=== PATIENT | female | born 1950 | race Caucasian/White ===

== ENCOUNTER 2017-08-27 17:25 | Inpatient (IN) | payer MEDICARE ==
--- NOTE | 2017-08-27 17:44 | ER Document Report ---
ED Medical Screen (RME) - General Chief Complaint: Shortness Of Breath Stated Complaint: SHORTNESS OF BREATH Time Seen by Provider: 08/27/17 17:39 Notes: Patient states that she has no local doctor in the area. She states she has had upper respiratory symptoms for several days but today became severely short of breath. She denies any hx of heart or lung disease TRAVEL OUTSIDE OF THE [place] IN LAST 30 DAYS: No - Related Data Allergies/Adverse Reactions: No Known Allergies Allergy (Unverified 08/27/17 17:30) Past Medical History - Social History Frequency of alcohol use: None Drug Abuse: None - Past Medical History Cardiac Medical History: Reports: Hx Hypertension Renal/ Medical History: Denies: Hx Peritoneal Dialysis Past Surgical History: Reports: Hx Genitourinary Surgery - bladder surgery Physical Exam - Vital signs Vitals: Temp Pulse Resp BP Pulse Ox 99.4 F 102 H 20 166/104 H 94 08/27/17 17:35 08/27/17 17:35 08/27/17 17:35 08/27/17 17:35 08/27/17 17:35 Course - Vital Signs Vital signs: Temp Pulse Resp BP Pulse Ox 99.4 F 102 H 20 166/104 H 94 08/27/17 17:35 08/27/17 17:35 08/27/17 17:35 08/27/17 17:35 08/27/17 17:35
[2017-08-27 18:35] LABS: ABSOLUTE BASOPHILS # (AUTO) 0.1 10^3/uL (0.0-0.2); ABSOLUTE EOSINOPHILS # (AUTO) 0.1 10^3/uL (0.0-0.6); ABSOLUTE NEUT (AUTO) 7.7 10^3/uL (1.7-8.2); EOSINOPHILS % (AUTO) 0.8 % (0-6); HEMATOCRIT 39.4 % (36.0-47.0); HEMOGLOBIN 13.4 g/dL (12.0-15.5); LYMPHOCYTES % (AUTO) 9.9 % (13-45); MEAN CORPUSCULAR HEMOGLOBIN 29.6 pg (27.0-33.4); MEAN CORPUSCULAR HGB CONC 33.9 g/dL (32.0-36.0); MEAN CORPUSCULAR VOLUME 87 fl (80-97); MONOCYTES % (AUTO) 9.9 % (3-13); PLATELET COUNT 364 10^3/uL (150-450); RED BLOOD COUNT 4.52 10^6/uL (3.72-5.28); RED CELL DISTRIBUTION WIDTH 19.6 % (11.5-14.0); SEGMENTED NEUTROPHILS % (AUTO) 78.4 % (42-78); TOTAL CELLS COUNTED % (AUTO) 100 %; WHITE BLOOD COUNT 9.8 10^3/uL (4.0-10.5)
[2017-08-27 18:40] LABS: VENOUS BLOOD BASE EXCESS 2.4 mmol/L; VENOUS BLOOD HCO3 26.7 mmol/L (20-32); VENOUS BLOOD PCO2 40.1 mmHg (35-63); VENOUS BLOOD PH 7.44 (7.30-7.42)
[2017-08-27 18:55] LABS: ALANINE AMINOTRANSFERASE 30 U/L (9-52); ALBUMIN 4.4 g/dL (3.5-5.0); ALKALINE PHOSPHATASE 206 U/L (38-126); ANION GAP 13 (5-19); ASPARTATE AMINO TRANSFERASE 34 U/L (14-36); BILIRUBIN,DIRECT 1.1 mg/dL (0.0-0.4); BILIRUBIN,TOTAL 1.8 mg/dL (0.2-1.3); BLOOD UREA NITROGEN 14 mg/dL (7-20); CALCIUM 10.2 mg/dL (8.4-10.2); CARBON DIOXIDE 25 mmol/L (22-30); CHLORIDE 104 mmol/L (98-107); GLUCOSE 144 mg/dL (75-110); POTASSIUM 4.4 mmol/L (3.6-5.0); SODIUM 141.9 mmol/L (137-145); TOTAL PROTEIN 8.6 g/dL (6.3-8.2)
--- NOTE | 2017-08-27 19:27 | ER Document Report ---
ED Respiratory Problem - General Chief Complaint: Shortness Of Breath Stated Complaint: SHORTNESS OF BREATH Time Seen by Provider: 08/27/17 17:39 Notes: Patient is a 66-year-old female that comes emergency department for chief complaint of difficulty breathing. She states that over the past few days she has had increased difficulty breathing, she states she thinks she had a fever the other day as well, no significant coughing. She states today she cannot walk a few steps without gasping for air. She denies any specific chest pain. She denies nausea vomiting, lightheadedness. She takes lisinopril 10 mg daily, she denies ever smoking, she denies any recreational drugs, she denies any surgery, she denies any medical history other than hypertension. Her primary providers in [place], she has been visiting to help with family here since last fall. TRAVEL OUTSIDE OF THE [place] IN LAST 30 DAYS: No - Related Data Allergies/Adverse Reactions: No Known Allergies Allergy (Unverified 08/27/17 17:30) Past Medical History - General Information source: Patient - Social History Smoking Status: Never Smoker Frequency of alcohol use: None Drug Abuse: None Lives with: Family Family History: Reviewed & Not Pertinent Patient has suicidal ideation: No Patient has homicidal ideation: No - Past Medical History Cardiac Medical History: Reports: Hx Hypertension Renal/ Medical History: Denies: Hx Peritoneal Dialysis Past Surgical History: Reports: Hx Genitourinary Surgery - bladder surgery - Immunizations Immunizations up to date: Yes Hx Diphtheria, Pertussis, Tetanus Vaccination: Yes Review of Systems - Review of Systems Constitutional: See HPI EENT: No symptoms reported Cardiovascular: See HPI Respiratory: See HPI Gastrointestinal: No symptoms reported Genitourinary: No symptoms reported Female Genitourinary: No symptoms reported Musculoskeletal: No symptoms reported Skin: No symptoms reported Hematologic/Lymphatic: No symptoms reported Neurological/Psychological: No symptoms reported Physical Exam - Vital signs Vitals: Temp Pulse Resp BP Pulse Ox 99.4 F 102 H 20 166/104 H 94 08/27/17 17:35 08/27/17 17:35 08/27/17 17:35 08/27/17 17:35 08/27/17 17:35 Interpretation: Normal - General General appearance: Alert In distress: Mild - patient with mild tachypnea - HEENT Head: Normocephalic, Atraumatic Eyes: Normal Conjunctiva: Normal Extraocular movements intact: Yes Eyelashes: Normal Pupils: PERRL Nasal: Normal Mouth/Lips: Normal Mucous membranes: Normal Pharynx: Normal Neck: Normal - Respiratory Respiratory status: No respiratory distress, Tachypnea - Very mild tachypnea off oxygen, no tachypnea with oxygen, Other - Patient has difficulty speaking in complete sentences without taking extra breaths. No: Respiratory distress Chest status: Nontender Breath sounds: Decreased air movement - decreased right greater than left, Rales - Rales heard mostly in the left mid to lower base. No: Nonproductive cough, Wheezing Chest palpation: Normal - Cardiovascular Rhythm: Regular, Tachycardia Heart sounds: Normal auscultation, S1 appreciated, S2 appreciated Murmur: No - Abdominal Inspection: Normal Distension: No distension Bowel sounds: Normal Tenderness: Nontender. No: Tender, Guarding - Back Back: Normal, Nontender. No: Tender, CVA tenderness - Extremities General upper extremity: Normal inspection, Nontender, Normal strength, Normal temperature General lower extremity: Normal inspection, Nontender, Normal strength, Normal temperature. No: Edema - Neurological Neuro grossly intact: Yes Cognition: Normal Orientation: AAOx4 Briana Coma Scale Eye Opening: Spontaneous Briana Coma Scale Verbal: Oriented Ney Coma Scale Motor: Obeys Commands Briana Coma Scale Total: 15 Speech: Normal Motor strength normal: LUE, RUE, LLE, RLE Sensory: Normal - Psychological Associated symptoms: Normal affect, Normal mood - Skin Skin Temperature: Warm Skin Moisture: Dry Skin Color: Normal Course - Re-evaluation Re-evalutation: Patient is not tachycardic, oxygen on room air is borderline and occasionally dips down to low 90s while sitting. However she can barely speak a few words without having obvious dyspnea, she has rales on examination of her lungs, worse in the left base with decreased breath sounds in the right lung, but no overt edema of the lower extremities. No previous diagnosis of congestive heart failure. EKG showing sinus tachycardia at a rate of 104, Q waves in leads III and aVF, left ventricular hypertrophy. No T-wave inversions or ST segment changes in consecutive leads. CBC unremarkable, chemistry generally unremarkable with nonspecific elevation of bilirubin. BNP is elevated at 5800 with no comparison. Blood gas is nonspecific. Urinalysis showing urinary tract infection with positive nitrates , white blood cells, leukocyte esterase. Culture placed, given Rocephin. Chest x-ray showing right-sided effusion, with rales on exam, elevated BNP, left ventricular hypertrophy on EKG I suspect effusion is secondary to failure. She is hypertensive. Given Lasix, nitroglycerin. She denies weight loss, smoking history, personal history of cancer. Bilirubin is only mildly elevated , no LFT elevation. Discussed with Dr. Grissom. Discussed with Dr. White, internal medicine, patient will be admitted to telemetry full admission. Patient states agreement with plan. - Vital Signs Vital signs: Temp Pulse Resp BP Pulse Ox 99.4 F 102 H 20 166/104 H 94 08/27/17 17:35 08/27/17 17:35 08/27/17 17:35 08/27/17 17:35 08/27/17 17:35 - Laboratory Result Diagrams: 08/27/17 18:15 08/27/17 18:15 Laboratory results interpreted by me: 08/27/17 08/27/17 08/27/17 18:15 18:15 18:15 RDW 19.6 H Seg Neutrophils % 78.4 H Lymphocytes % 9.9 L VBG pH Creatinine 0.49 L Glucose 144 H Total Bilirubin 1.8 H Direct Bilirubin 1.1 H Alkaline Phosphatase 206 H NT-Pro-B Natriuret Pep 5800 H Total Protein 8.6 H Urine Protein Urine Ketones Urine Blood Urine Nitrite Urine Urobilinogen Ur Leukocyte Esterase Urine Ascorbic Acid 08/27/17 08/27/17 18:15 18:34 RDW Seg Neutrophils % Lymphocytes % VBG pH 7.44 H Creatinine Glucose Total Bilirubin Direct Bilirubin Alkaline Phosphatase NT-Pro-B Natriuret Pep Total Protein Urine Protein 100 H Urine Ketones 20 H Urine Blood SMALL H Urine Nitrite POSITIVE H Urine Urobilinogen 4.0 H Ur Leukocyte Esterase SMALL H Urine Ascorbic Acid 40 H Discharge - Discharge Clinical Impression: Dyspnea on exertion, Pleural effusion Congestive heart failure (CHF) Qualifiers: Heart failure type: unspecified Heart failure chronicity: acute Qualified Code( s): I50.9 - Heart failure, unspecified Urinary tract infection Qualifiers: Urinary tract infection type: site unspecified Hematuria presence: without hematuria Qualified Code(s): N39.0 - Urinary tract infection, site not specified Condition: Stable Disposition: ADMITTED INPATIENT Admitting Provider: Hospitalist Unit Admitted: Telemetry
--- NOTE | 2017-08-27 19:40 | RADIOLOGY REPORT (SQ) ---
EXAM DESCRIPTION: CHEST SINGLE VIEW COMPLETED DATE/TIME: 08/27/2017 7:32 pm REASON FOR STUDY: shortness of breath COMPARISON: None. EXAM PARAMETERS: NUMBER OF VIEWS: One view. TECHNIQUE: Single frontal radiographic view of the chest acquired. RADIATION DOSE: NA LIMITATIONS: None. FINDINGS: LUNGS AND PLEURA: Large amount of consolidation -effusion in the right lung base. Left cam ng appears clear. MEDIASTINUM AND HILAR STRUCTURES: Age-appropriate in its visualized portions. HEART AND VASCULAR STRUCTURES: Mild cardiac enlargement. BONES: No acute findings. HARDWARE: None in the chest. OTHER: No other significant finding. IMPRESSION: Large amount of consolidation -effusion in the right lung base. TECHNICAL DOCUMENTATION: JOB ID: [id number] [place]-72 2010 [employer]- All Rights Reserved
[2017-08-27 19:53] LABS: AMORPHOUS SEDIMENT,URINE TRACE /HPF; APPEARANCE,URINE TURBID; BILIRUBIN,URINE NEGATIVE (NEGATIVE); COLOR,URINE YELLOW; GLUCOSE, URINE NEGATIVE (NEGATIVE); KETONES,URINE 20 mg/dL (NEGATIVE); LEUKOCYTE ESTERASE,URINE SMALL (NEGATIVE); NITRITE,URINE POSITIVE (NEGATIVE); PROTEIN,URINE 100 mg/dL (NEGATIVE); URINE SPECIFIC GRAVITY 1.029
[2017-08-27] MEDS ORDERED: CEFTRIAXONE 1 GM/D5W RTU 1 GM/50 ML RTUPB IV ONE (20:10)
[2017-08-27 20:41] LABS: CREATINE KINASE MB 1.27 ng/mL (<4.55)
[2017-08-27 21:05] LABS: TROPONIN I 0.03 ng/mL
[2017-08-27] MEDS ORDERED: FUROSEMIDE INJ/PF 40 MG/4 ML SDV IV ONE (21:13)
[2017-08-27] MEDS ORDERED: NITROGLYCERIN 2% OINTMENT 1 GM PACKET TP ONE (21:13)
[2017-08-27] MEDS ORDERED: CEFTRIAXONE INJ 1000 MG VIAL ONE (21:54)
[2017-08-27] MEDS ORDERED: ACETAMINOPHEN 325 MG TABLET PO PRN (22:18)
--- NOTE | 2017-08-27 23:29 | RADIOLOGY REPORT (SQ) ---
EXAM DESCRIPTION: CHEST SINGLE VIEW CLINICAL HISTORY: 66 years, Female, lateral decubitus - eval effusion COMPARISON: None. NUMBER OF VIEWS: 1 TECHNIQUE: Right lateral decubitus LIMITATIONS: None. FINDINGS: A right lateral decubitus view to supplement an earlier upright view shows a moderate right lower lobar opacity and a moderate layering fluid component. Mild cardiac enlargement. IMPRESSION: As above.
[2017-08-27 23:33] LABS: CREATINE KINASE MB 1.29 ng/mL (<4.55)
[2017-08-27 23:43] LABS: TROPONIN I 0.039 ng/mL
[2017-08-28] MEDS ORDERED: LORAZEPAM INJ 2 MG/1 ML VIAL ONE (00:30)
[2017-08-28] MEDS ORDERED: KETOROLAC TROMETHAMINE INJ/PF 30 MG/1 ML SDV IV PRN (01:05)
[2017-08-28] MEDS ORDERED: HYDRALAZINE HCL INJ/PF 20 MG/1 ML SDV IV PRN (01:05)
--- NOTE | 2017-08-28 01:11 | RADIOLOGY REPORT (SQ) ---
EXAM DESCRIPTION: CT ABD/PELVIS NO ORAL OR IV (accession [id number]), CT CHEST WITHOUT (accession [id number]) CLINICAL HISTORY: 66 years Female, pyelo COMPARISON: CR, 08/27/2017. TECHNIQUE: No contrast. Coronal and sagittal reformat. This exam was performed according to our departmental dose-optimization program, which includes automated exposure control, adjustment of the mA and/or kV according to patient size and/or use of iterative reconstruction technique. Limitation: Respiration artifact. FINDINGS: Moderate-large right pleural effusion, moderate right basilar consolidate. Moderate coronary arterial calcification. Mild cardiac enlargement, cholecystectomy clips, moderate pancreatic atrophy, atherosclerosis, and scattered vacuum desiccated discs. Moderate exaggerated kyphosis of the thoracic spine. Unenhanced inferior neck, axillae, mediastinum, htcdb-ubidrxakj-mvirqi structures, and musculoskeleton appear otherwise unremarkable. No ascites. IMPRESSION: 1. Moderate right lower lobar pneumonia. Moderate-large right pleural effusion. 2. No acute intra-abdominal/pelvic findings.
--- NOTE | 2017-08-28 01:11 | RADIOLOGY REPORT (SQ) ---
EXAM DESCRIPTION: CT ABD/PELVIS NO ORAL OR IV (accession [id number]), CT CHEST WITHOUT (accession [id number]) CLINICAL HISTORY: 66 years Female, pyelo COMPARISON: CR, 08/27/2017. TECHNIQUE: No contrast. Coronal and sagittal reformat. This exam was performed according to our departmental dose-optimization program, which includes automated exposure control, adjustment of the mA and/or kV according to patient size and/or use of iterative reconstruction technique. Limitation: Respiration artifact. FINDINGS: Moderate-large right pleural effusion, moderate right basilar consolidate. Moderate coronary arterial calcification. Mild cardiac enlargement, cholecystectomy clips, moderate pancreatic atrophy, atherosclerosis, and scattered vacuum desiccated discs. Moderate exaggerated kyphosis of the thoracic spine. Unenhanced inferior neck, axillae, mediastinum, insux-zsuokdmdp-uycyte structures, and musculoskeleton appear otherwise unremarkable. No ascites. IMPRESSION: 1. Moderate right lower lobar pneumonia. Moderate-large right pleural effusion. 2. No acute intra-abdominal/pelvic findings.
[2017-08-28] MEDS: IPRATROPIUM/ALBUTEROL 0.5-2.5 MG/3 ML AMPUL NEB SCH ×4 (01:48→20:20)
--- NOTE | 2017-08-28 04:18 | PDOC H&P ---
History of Present Illness Admission Date/PCP: 08/27/17 22:36 Patient complains of: Shortness of breath History of Present Illness: JUAN PABLO DIANE is a 66 year old female with a past medical history of hypertension. Presenting after several weeks of progressive leg edema, orthopnea and exertional shortness of breath. Additionally she has had several days of rhinorrhea, subjective fever and nonproductive cough. In the emergency room she is found to be hypertensive with systolic pressure in the 180s, tachypnea and a CT of the chest with a large right-sided pleural effusion and infiltrate. She started on empiric antibiotics and referred to the hospitalist for admission. Patient denies previous pneumonia, infectious contacts or recent antibiotic use. Past Medical History Cardiac Medical History: Reports: Hypertension EENT Medical History: Reports: None Neurological Medical History: Reports: None Endocrine Medical History: Reports: None Malignancy Medical History: Reports: None GI Medical History: Reports: None Musculoskeltal Medical History: Reports: None Skin Medical History: Reports: None Psychiatric Medical History: Reports: None Traumatic Medical History: Reports: None Hematology: Reports: None Infectious Medical History: Reports: None Past Surgical History Past Surgical History: Reports: None Social History Information Source: Patient Lives with: Family Smoking Status: Never Smoker Frequency of Alcohol Use: None Drugs: None - Advance Directive Resuscitation Status: Full Code Family History Family History: COPD Parental Family History Reviewed: Yes Children Family History Reviewed: Yes Sibling(s) Family History Reviewed.: Yes Medication/Allergy Home Medications: Lisinopril [Prinivil 10 mg Tablet] 10 mg PO QPM 08/27/17 Allergies/Adverse Reactions: No Known Allergies Allergy (Unverified 08/27/17 17:30) Review of Systems Constitutional: PRESENT: as per HPI, chills, fatigue, fever(s), weakness, weight gain. ABSENT: anorexia, night sweats Eyes: ABSENT: visual disturbances Ears: ABSENT: hearing changes Cardiovascular: PRESENT: as per HPI, dyspnea on exertion, edema, orthropnea. ABSENT: palpitations Respiratory: PRESENT: as per HPI, cough, dyspnea. ABSENT: hemoptysis, sputum Gastrointestinal: ABSENT: abdominal pain, constipation, diarrhea, hematemesis, hematochezia, nausea, vomiting Genitourinary: ABSENT: dysuria, hematuria Musculoskeletal: ABSENT: joint swelling Integumentary: ABSENT: rash, wounds Neurological: ABSENT: abnormal gait, abnormal speech, confusion, dizziness, focal weakness, syncope Psychiatric: ABSENT: anxiety, depression, homidical ideation, suicidal ideation Endocrine: ABSENT: cold intolerance, heat intolerance, polydipsia, polyuria Hematologic/Lymphatic: ABSENT: easy bleeding, easy bruising Physical Exam Vital Signs: Temp Pulse Resp BP Pulse Ox 98.9 F 88 31 H 156/87 H 96 08/28/17 01:09 08/28/17 01:50 08/28/17 03:17 08/28/17 03:17 08/28/17 03:17 General appearance: PRESENT: cooperative, mild distress, obese Head exam: PRESENT: atraumatic, normocephalic Eye exam: PRESENT: conjunctiva pink, EOMI, PERRLA. ABSENT: scleral icterus Ear exam: PRESENT: normal external ear exam Mouth exam: PRESENT: moist, tongue midline Neck exam: PRESENT: full ROM, JVD. ABSENT: meningismus, tenderness, thyromegaly Respiratory exam: PRESENT: accessory muscle use, crackles, decreased breath sounds, prolonged expiratory phas, rales, retraction, rhonchi, tachypnea Cardiovascular exam: PRESENT: gallop, RRR, +S1, +S2, systolic murmur, tachycardia Pulses: PRESENT: normal dorsalis pedis pul Vascular exam: PRESENT: normal capillary refill GI/Abdominal exam: PRESENT: normal bowel sounds, soft. ABSENT: distended, guarding, mass, organolmegaly, rebound, tenderness Rectal exam: PRESENT: deferred Extremities exam: PRESENT: full ROM, +1 edema. ABSENT: calf tenderness, clubbing, pedal edema Neurological exam: PRESENT: alert, awake, oriented to person, oriented to place , oriented to time, oriented to situation, CN II-XII grossly intact. ABSENT: motor sensory deficit Psychiatric exam: PRESENT: appropriate affect, normal mood. ABSENT: homicidal ideation, suicidal ideation Skin exam: PRESENT: dry, intact, warm. ABSENT: cyanosis, rash Results Laboratory Results: 08/27/17 08/27/17 22:45 22:45 Creatine Kinase 46 CK-MB (CK-2) 1.29 Troponin I 0.039 Impressions: Chest X-Ray 08/27/17 22:15 IMPRESSION: As above. Abdomen/Pelvis CT 08/28/17 00:00 IMPRESSION: 1. Moderate right lower lobar pneumonia. Moderate-large right pleural effusion. 2. No acute intra-abdominal/pelvic findings. Chest CT 08/28/17 00:00 IMPRESSION: 1. Moderate right lower lobar pneumonia. Moderate-large right pleural effusion. 2. No acute intra-abdominal/pelvic findings. Assessment & Plan - Diagnosis (1) Pneumonia Is this a current diagnosis for this admission?: Yes Plan: Pneumonia care set, telemetry admission. Incentive spirometry, empiric antibiotics albuterol and Atrovent ordered. Follow-up CBC and blood culture (2) Congestive heart failure (CHF) Qualifiers: Heart failure type: unspecified Heart failure chronicity: acute Qualified Code(s): I50.9 - Heart failure, unspecified Is this a current diagnosis for this admission?: Yes Plan: Unclear ejection fraction concern for systolic heart failure Depression, gentle diuresis, BiPAP and 2D echo (3) Dyspnea on exertion Is this a current diagnosis for this admission?: Yes Plan: Multifactorial secondary to pneumonia, pleural effusion and newly diagnosed congestive heart failure. (4) Pleural effusion Is this a current diagnosis for this admission?: Yes Plan: [employer] Se[employer] consulted for consideration of thoracentesis. - Time Time Spent: 50 to 70 Minutes - Inpatient Certification Medical Necessity: Need Close Monitoring Due to Risk of Patient Decompensation
[2017-08-28 04:42] LABS: HEMATOCRIT 37.5 % (36.0-47.0); HEMOGLOBIN 12.5 g/dL (12.0-15.5); MEAN CORPUSCULAR HGB CONC 33.4 g/dL (32.0-36.0); MEAN CORPUSCULAR VOLUME 87 fl (80-97); PLATELET COUNT 341 10^3/uL (150-450); RED BLOOD COUNT 4.31 10^6/uL (3.72-5.28); RED CELL DISTRIBUTION WIDTH 19.6 % (11.5-14.0); WHITE BLOOD COUNT 9.3 10^3/uL (4.0-10.5)
[2017-08-28] MEDS: HEPARIN SOD (PORCINE) 5,000 UNIT/ML 1 ML SYRINGE SUBCUT SCH ×3 (05:29→21:53)
[2017-08-28 05:30] LABS: CREATINE KINASE MB 1.37 ng/mL (<4.55)
[2017-08-28 05:40] LABS: TROPONIN I 0.049 ng/mL
[2017-08-28 06:02] LABS: ALANINE AMINOTRANSFERASE 29 U/L (9-52); ALBUMIN 3.9 g/dL (3.5-5.0); ALKALINE PHOSPHATASE 154 U/L (38-126); ANION GAP 14 (5-19); ASPARTATE AMINO TRANSFERASE 33 U/L (14-36); BILIRUBIN,DIRECT 0.7 mg/dL (0.0-0.4); BILIRUBIN,TOTAL 1.3 mg/dL (0.2-1.3); BLOOD UREA NITROGEN 14 mg/dL (7-20); CALCIUM 9.5 mg/dL (8.4-10.2); CARBON DIOXIDE 25 mmol/L (22-30); CHLORIDE 107 mmol/L (98-107); CREATINE KINASE 53 U/L (30-135); GLUCOSE 128 mg/dL (75-110); POTASSIUM 4.4 mmol/L (3.6-5.0); SODIUM 146.4 mmol/L (137-145)
--- NOTE | 2017-08-28 08:50 | EKG REPORT ---
SEVERITY:- ABNORMAL ECG - SINUS TACHYCARDIA PROBABLE LEFT ATRIAL ABNORMALITY LVH WITH SECONDARY REPOLARIZATION ABNORMALITY PROBABLE INFERIOR INFARCT, OLD : Confirmed by: Soraida Mullen 28-Aug-2017 08:48:50
[2017-08-28 10:40] LABS: INTERNATIONAL RATION (INR) 1.32; PROTHROMBIN TIME 17.2 SEC (11.4-15.4)
[2017-08-28 10:41] LABS: PARTIAL THROMBOPLASTIN TIME 30.9 SEC (23.5-35.8)
[2017-08-28 10:57] LABS: TOTAL PROTEIN 7.7 g/dL (6.3-8.2)
[2017-08-28 11:10] LABS: CREATINE KINASE MB 1.63 ng/mL (<4.55); TROPONIN I 0.047 ng/mL
[2017-08-28] MEDS: DOCUSATE SODIUM 100 MG CAPSULE PO SCH ×2 (11:14→17:28)
[2017-08-28] MEDS: LEVOFLOXACIN 750 MG/D5W RTU 750 MG/150 ML RTUPB IV SCH (11:15)
--- NOTE | 2017-08-28 19:50 | PDOC PROGRESS REPORT ---
Subjective Progress Note for:: 08/28/17 Subjective:: Doing better, breathing improving. No fever or chills. Still with cough. at bedside. No chest pain or palpitations. Reason For Visit: UTI CHF LARGE R PLEURAL EFFUSION Physical Exam Vital Signs: Temp Pulse Resp BP Pulse Ox 99.0 F 88 28 H 144/72 H 95 08/28/17 15:55 08/28/17 15:55 08/28/17 15:55 08/28/17 15:55 08/28/17 15:55 Intake & Output 08/27/17 08/28/17 08/29/17 06:59 06:59 06:59 Intake Total 10 Balance 10 Weight 91.5 kg GEN: NAD, well-deloped, well-nourished CV: RRR, NL S1S2 LUNGS: Decreased breath sounds right base, crackles left base ABDOMEN Soft, NT, +BS EXTERMITIES: 1-2+ lower extremity edema NEURO: Alert, oriented Results Laboratory Results: 08/28/17 04:30 08/28/17 10:15 08/28/17 08/28/17 08/28/17 04:30 04:30 10:15 WBC 9.3 RBC 4.31 Hgb 12.5 Hct 37.5 MCV 87 MCH 29.0 MCHC 33.4 RDW 19.6 H Plt Count 341 Sodium 146.4 H Potassium 4.4 Chloride 107 Carbon Dioxide 25 Anion Gap 14 BUN 14 Creatinine 0.51 L Est GFR ( Amer) > 60 Est GFR (Non-Af Amer) > 60 Glucose 128 H 147 H Calcium 9.5 Total Bilirubin 1.3 AST 33 ALT 29 Alkaline Phosphatase 154 H Total Protein 7.0 7.7 Albumin 3.9 08/27/17 08/27/17 08/28/17 22:45 22:45 04:30 Creatine Kinase 46 53 CK-MB (CK-2) 1.29 Troponin I 0.039 08/28/17 08/28/17 08/28/17 04:30 10:15 10:15 Creatine Kinase 64 CK-MB (CK-2) 1.37 1.63 Troponin I 0.049 0.047 Impressions: Chest X-Ray 08/27/17 22:15 IMPRESSION: As above. Abdomen/Pelvis CT 08/28/17 00:00 IMPRESSION: 1. Moderate right lower lobar pneumonia. Moderate-large right pleural effusion. 2. No acute intra-abdominal/pelvic findings. Chest CT 08/28/17 00:00 IMPRESSION: 1. Moderate right lower lobar pneumonia. Moderate-large right pleural effusion. 2. No acute intra-abdominal/pelvic findings. Assessment & Plan - Diagnosis (1) Pneumonia Qualifiers: Pneumonia type: due to unspecified organism Laterality: right Lung location: lower lobe of lung Qualified Code(s): J18.1 - Lobar pneumonia, unspecified organism Is this a current diagnosis for this admission?: Yes Plan: Continue Levaquin antibiotics. (2) Congestive heart failure (CHF) Qualifiers: Heart failure type: unspecified Heart failure chronicity: acute Qualified Code(s): I50.9 - Heart failure, unspecified Is this a current diagnosis for this admission?: Yes Plan: Unclear ejection fraction, concern for systolic heart failure. Continue gentle diuresis, BiPAP. Follow-up 2D echo results. (3) Dyspnea on exertion Is this a current diagnosis for this admission?: Yes Plan: Multifactorial (4) Pleural effusion Is this a current diagnosis for this admission?: Yes Plan: Continue gentle diuresis. Awaiting pulmonology consult to advise if thoracentesis. (5) Urinary tract infection Qualifiers: Urinary tract infection type: site unspecified Hematuria presence: without hematuria Qualified Code(s): N39.0 - Urinary tract infection, site not specified Is this a current diagnosis for this admission?: Yes Plan: UA growing gram positive bacilli. Follow-up result. Continue Levaquin for now as patient afebrile, hemodynamically stable. - Plan Summary Plan Summary: Follow-up CBC and Chem-7 in a.m. Continue to follow culture results. Continue O2 as needed.
[2017-08-28 20:54] LABS: ABSOLUTE BASOPHILS # (AUTO) 0.1 10^3/uL (0.0-0.2); ABSOLUTE EOSINOPHILS # (AUTO) 0.1 10^3/uL (0.0-0.6); ABSOLUTE LYMPHOCYTES (AUTO) 1.4 10^3/uL (0.5-4.7); ABSOLUTE MONOCYTES (AUTO) 1.4 10^3/uL (0.1-1.4); ABSOLUTE NEUT (AUTO) 7.8 10^3/uL (1.7-8.2); EOSINOPHILS % (AUTO) 0.7 % (0-6); HEMATOCRIT 36.1 % (36.0-47.0); HEMOGLOBIN 12.3 g/dL (12.0-15.5); LYMPHOCYTES % (AUTO) 13.1 % (13-45); MEAN CORPUSCULAR HEMOGLOBIN 29.5 pg (27.0-33.4); MEAN CORPUSCULAR HGB CONC 33.9 g/dL (32.0-36.0); MEAN CORPUSCULAR VOLUME 87 fl (80-97); MONOCYTES % (AUTO) 13.2 % (3-13); PLATELET COUNT 334 10^3/uL (150-450); RED BLOOD COUNT 4.16 10^6/uL (3.72-5.28); RED CELL DISTRIBUTION WIDTH 19.4 % (11.5-14.0); TOTAL CELLS COUNTED % (AUTO) 100 %; WHITE BLOOD COUNT 10.8 10^3/uL (4.0-10.5)
[2017-08-28 21:09] LABS: ANION GAP 10 (5-19); BLOOD UREA NITROGEN 19 mg/dL (7-20); CALCIUM 9.5 mg/dL (8.4-10.2); CARBON DIOXIDE 28 mmol/L (22-30); CHLORIDE 101 mmol/L (98-107); GLUCOSE 131 mg/dL (75-110); POTASSIUM 4.1 mmol/L (3.6-5.0); SODIUM 139.3 mmol/L (137-145)
[2017-08-29] MEDS: IPRATROPIUM/ALBUTEROL 0.5-2.5 MG/3 ML AMPUL NEB SCH ×4 (02:05→20:12)
[2017-08-29] MEDS: HEPARIN SOD (PORCINE) 5,000 UNIT/ML 1 ML SYRINGE SUBCUT SCH ×3 (04:03→21:31)
--- NOTE | 2017-08-29 07:41 | XCELERA REPORT ---
[address] [address] Transthoracic Echocardiogram Report Name: JUAN PABLO DIANE Age: 66 yrs Gender: Female : 1950 Patient Status: Inpatient Patient Location: [facility]^A Study Date: 08/28/2017 02:31 PM Height: 67 in Weight: 204 lb BSA: 2.0 m2 Reason For Study: pleural effusion Ordering Physician: ZION ARRIAZA Performed By: Era Hernandez Interpretation Summary .Mod to large pleural effusion, need CXR to define. No pericardial effusion AV sclerosis, no , no AR. Mod Mitral annular calcification with no MS, mod MR and mod LA enlargement DARSHANA 44. Borderline LVH but with multiple regional wall motion abn, and a dys- synchronous IVS, and mild/mod LV enlargement, and LVEF biplane not done, visually estimated as about 30% with stage II LV diastolic dysfunction. RA enlargement with elev. RVSP 57mm Hg (RAP 15mm). MMode/2D Measurements & Calculations RVDd: 4.2 cm LVIDd: 5.2 cm FS: 14.7 % MV Diam: 2.1 cm IVSd: 1.1 cm LVIDs: 4.4 cm EDV(Teich): LVPWd: 1.0 cm 129.2 ml ESV(Teich): 89.2 ml EF(Teich): 30.9 % Ao root diam: 2.7 cm LA A2Cs: LA A4Cs: 23.7 cm2 LA length: Ao root area: 5.7 cm2 31.4 cm2 6.4 cm LA dimension: 4.1 cm LA Vol Index (BP): LA Volume: 98.7 ml 48.4 ml/m2 Doppler Measurements & Calculations MV E max gogo: MV area (1 diam): MV P1/2t max gogo: Ao V2 max: 110.1 cm/sec 3.3 cm2 110.6 cm/sec 172.2 cm/sec MV A max gogo: MV Flow area MV P1/2t: 40.6 msec Ao max P.4 cm/sec MVA(P1/2t): 5.4 cm2 11.9 mmHg MV E/A: 2.4 (1diam): 3.3 cm2 MV dec slope: 798.0 cm/sec2 LV V1 max PG: MR max gogo: PA V2 max: PI end-d gogo: 6.5 mmHg 536.4 cm/sec 85.4 cm/sec 115.4 cm/sec LV V1 max: MR max PG: PA max P.9 mmHg 127.3 cm/sec 115.1 mmHg LV dP/dt: 1010 mmHg/s TR max gogo: 321.4 cm/sec TR max P.3 mmHg Left Ventricle The left ventricle is mildly to moderately dilated. [id number]. There is borderline concentric left ventricular hypertrophy. Due to the poor quality of the echocardiogram, an assessment of left ventricular ejection fraction cannot be made. Best estimate is 30%. Doppler measurements suggest pseudonormalized left ventricular relaxation, which is associated with grade II/IV or mild to moderate diastolic dysfunction. The deceleration time of the mitral E wave is shortened, with a value < 160 msec. There is septal wall moderate hypokinesis. There is basal inferior wall dyskinesis. There is no thrombus. Right Ventricle The right ventricle is grossly normal size. The right ventricular systolic function is normal. Atria The right atrium is mild to moderately dilated. The left atrium is dilated. The interatrial septum is intact with no evidence for an atrial septal defect. Mitral Valve There is moderate mitral annular calcification. The mitral valve leaflets appear thickened, but open well. There is no evidence of mitral valve prolapse. There is no mitral valve stenosis. There is a moderate amount of mitral regurgitation. Aortic Valve The aortic valve is sclerotic and shows some degree of functional abnormality. The aortic valve opens well. There is no aortic valvular vegetation. There is no aortic valve stenosis. No aortic regurgitation is present. Tricuspid Valve The tricuspid is normal in structure and function. There is no tricuspid valve prolapse. There is no tricuspid stenosis. There is a moderate amount of tricuspid regurgitation. Right ventricular systolic pressure is estimated to be elevated at 50-60mmHg. Pulmonic Valve The pulmonic valve is not well visualized. There is a trace or physiologic amount of pulmonic regurgitation. Great Vessels The aortic root is normal size. There is aortic root sclerosis/calcification. Effusions There is no pericardial effusion. Large left pleural effusion. I WMSI = 1.88 % Normal = 50 Segments Size X - Cannot 1 - Normal 2 - 3 - Akinetic4 - 1-2 small Interpret Hypokinetic Dyskinetic 3-5 moderate 5 - 6-14 large Aneurysmal 15-16 diffuse : ZION ARRIAZA > Philip Fischer
[2017-08-29] MEDS: FUROSEMIDE INJ/PF 20 MG/2 ML SDV IV SCH (09:03)
[2017-08-29] MEDS: LEVOFLOXACIN 750 MG/D5W RTU 750 MG/150 ML RTUPB IV SCH (09:04)
[2017-08-29] MEDS: DOCUSATE SODIUM 100 MG CAPSULE PO SCH ×2 (09:05→17:18)
--- NOTE | 2017-08-29 12:41 | RADIOLOGY REPORT (SQ) ---
EXAM DESCRIPTION: CHEST SINGLE VIEW COMPLETED DATE/TIME: 08/29/2017 12:16 pm REASON FOR STUDY: S/P RT THORACENTESIS COMPARISON: 08/27/2017 EXAM PARAMETERS: NUMBER OF VIEWS: One view. TECHNIQUE: Single frontal radiographic view of the chest acquired. RADIATION DOSE: NA LIMITATIONS: None. FINDINGS: LUNGS AND PLEURA: Marked decrease in right pleural effusion. No pneumothorax. MEDIASTINUM AND HILAR STRUCTURES: No masses. Contour normal. HEART AND VASCULAR STRUCTURES: Heart normal in size. Normal vasculature. BONES: No acute findings. HARDWARE: None in the chest. OTHER: No other significant finding. IMPRESSION: No pneumothorax status post right thoracentesis. TECHNICAL DOCUMENTATION: JOB ID: [id number] [employer]- All Rights Reserved
--- NOTE | 2017-08-29 12:44 | RADIOLOGY REPORT (SQ) ---
EXAM DESCRIPTION: U/S THORACENTESIS WITH IMAGING COMPLETED DATE/TIME: 08/29/2017 12:35 pm REASON FOR STUDY: r pleural effusion COMPARISON: None. LIMITATIONS: None. PROCEDURE: Procedure, risks, benefit, and alternative explained to patient who then gave written con sent. The posterior right chest wall was marked using ultrasound guidance. A time-out was called fo r correct marking verification. Chest prepped and draped using sterile technique. Local anesthesia a chieved using 3.0 ml of 1% lidocaine injection. A go was introduced into the right pleural space. F luid was aspirated. The catheter was removed and the entry site was covered with sterile bandage. N o immediate complications noted. Images acquired during the procedure were stored on PACS. FINDINGS: ENTRY SITE: Posterior right chest. FLUID VOLUME: 1800 cc FLUID ANALYSIS: Straw. OTHER: Fluid sent to the lab for testing. IMPRESSION: SUCCESSFUL THORACENTESIS USING ULTRASOUND GUIDANCE. COMMENT: Patient medication list reviewed: Yes- Quality ID# [id number]:Eligible professional attests to doc umenting in the medical record they obtained, updated, or reviewed the patient's current medications. Quality ID #[id number]: Final reports for procedures using fluoroscopy that document radiation exposure prosper aviva, or exposure time and number of fluorographic images (if radiation exposure indices are not avail able) TECHNICAL DOCUMENTATION: JOB ID: [id number] [employer]- All Rights Reserved
[2017-08-29 13:09] LABS: FLUID APPEARANCE HAZY; FLUID COLOR YELLOW; FLUID TYPE PLEURAL; FLUID VISCOSITY LIQUID
--- NOTE | 2017-08-29 15:25 | RADIOLOGY REPORT (SQ) ---
EXAM DESCRIPTION: CHEST SINGLE VIEW COMPLETED DATE/TIME: 08/29/2017 2:23 pm REASON FOR STUDY: 2 HOURS S/P RT THORACENSIS COMPARISON: Earlier the same day. NUMBER OF VIEWS: One view. TECHNIQUE: Single frontal radiographic image of the chest acquired. LIMITATIONS: None. FINDINGS: LUNGS AND PLEURA: No pneumothorax. Increasing airspace opacity in the right lower lobe co nsistent with re-expansion edema. MEDIASTINUM AND HEART: Stable heart size and mediastinal structures. BONY STRUCTURES: No acute findings. HARDWARE: None. OTHER: No other significant finding. IMPRESSION: No pneumothorax. TECHNICAL DOCUMENTATION: JOB ID: [id number]
--- NOTE | 2017-08-29 19:43 | PDOC PROGRESS REPORT ---
Subjective Progress Note for:: 08/29/17 Subjective:: Breathing continues to improve. No fever or chills. Still with cough. at bedside. No chest pain or palpitations. at bedside. Reason For Visit: UTI CHF LARGE R PLEURAL EFFUSION Physical Exam Vital Signs: Temp Pulse Resp BP Pulse Ox 100.1 F 106 H 20 139/63 H 99 08/29/17 17:25 08/29/17 19:00 08/29/17 15:35 08/29/17 17:25 08/29/17 15:35 Intake & Output 08/28/17 08/29/17 08/30/17 06:59 06:59 06:59 Intake Total 110 1180 Balance 110 1180 Weight 90.2 kg GEN: NAD, well-deloped, well-nourished CV: RRR, NL S1S2 LUNGS: Decreased breath sounds right base, crackles left base ABDOMEN Soft, NT, +BS EXTERMITIES: 1-2+ lower extremity edema NEURO: Alert, oriented 3 Results Laboratory Results: 08/28/17 20:45 08/28/17 20:45 08/28/17 08/28/17 08/29/17 20:45 20:45 11:50 WBC 10.8 H RBC 4.16 Hgb 12.3 Hct 36.1 MCV 87 MCH 29.5 MCHC 33.9 RDW 19.4 H Plt Count 334 Seg Neutrophils % 72.0 Lymphocytes % 13.1 Monocytes % 13.2 H Eosinophils % 0.7 Basophils % 1.0 Absolute Neutrophils 7.8 Absolute Lymphocytes 1.4 Absolute Monocytes 1.4 Absolute Eosinophils 0.1 Absolute Basophils 0.1 Sodium 139.3 Potassium 4.1 Chloride 101 Carbon Dioxide 28 Anion Gap 10 BUN 19 Creatinine 0.53 Est GFR ( Amer) > 60 Est GFR (Non-Af Amer) > 60 Glucose 131 H Calcium 9.5 Fluid Type PLEURAL Fluid Source Fluid Color YELLOW Fluid Appearance HAZY Fluid Viscosity LIQUID Fluid WBC 1450 Fluid RBC 642 08/27/17 08/27/17 08/28/17 22:45 22:45 04:30 Creatine Kinase 46 53 CK-MB (CK-2) 1.29 Troponin I 0.039 08/28/17 08/28/17 08/28/17 04:30 10:15 10:15 Creatine Kinase 64 CK-MB (CK-2) 1.37 1.63 Troponin I 0.049 0.047 Impressions: Abdomen/Pelvis CT 08/28/17 00:00 IMPRESSION: 1. Moderate right lower lobar pneumonia. Moderate-large right pleural effusion. 2. No acute intra-abdominal/pelvic findings. Chest CT 08/28/17 00:00 IMPRESSION: 1. Moderate right lower lobar pneumonia. Moderate-large right pleural effusion. 2. No acute intra-abdominal/pelvic findings. Chest X-Ray 08/29/17 00:00 IMPRESSION: No pneumothorax. Thoracentesis Ultrasound 08/29/17 09:34 IMPRESSION: SUCCESSFUL THORACENTESIS USING ULTRASOUND GUIDANCE. Assessment & Plan - Diagnosis (1) Pneumonia Qualifiers: Pneumonia type: due to unspecified organism Laterality: right Lung location: lower lobe of lung Qualified Code(s): J18.1 - Lobar pneumonia, unspecified organism Is this a current diagnosis for this admission?: Yes Plan: Continue Levaquin antibiotics. (2) Congestive heart failure (CHF) Qualifiers: Heart failure type: unspecified Heart failure chronicity: acute Qualified Code(s): I50.9 - Heart failure, unspecified Is this a current diagnosis for this admission?: Yes Plan: This is now established to be acute on chronic combined systolic and diastolic dysfunction. 2D echo with estimated EF 30%, grade 2 left ventricular diastolic dysfunction, elevated RVSP 57. Continue Lasix. Review patient's home medications. She will need JULIET inhibitor , beta-manas. Cardiology follow-up if not already seen 1 as outpatient. (3) Dyspnea on exertion Is this a current diagnosis for this admission?: Yes Plan: Multifactorial, improved. (4) Pleural effusion Is this a current diagnosis for this admission?: Yes Plan: Continue gentle diuresis. Status post thoracentesis today. (5) Urinary tract infection Qualifiers: Urinary tract infection type: site unspecified Hematuria presence: without hematuria Qualified Code(s): N39.0 - Urinary tract infection, site not specified Is this a current diagnosis for this admission?: Yes Plan: UA growing growing E. coli sensitive to Levaquin. Continue Levaquin. Patient remains afebrile and hemodynamically stable.
[2017-08-30] MEDS: IPRATROPIUM/ALBUTEROL 0.5-2.5 MG/3 ML AMPUL NEB SCH ×3 (02:08→14:11)
[2017-08-30] MEDS: HEPARIN SOD (PORCINE) 5,000 UNIT/ML 1 ML SYRINGE SUBCUT SCH ×3 (05:11→22:36)
[2017-08-30 06:43] LABS: ABSOLUTE BASOPHILS # (AUTO) 0.1 10^3/uL (0.0-0.2); ABSOLUTE EOSINOPHILS # (AUTO) 0.1 10^3/uL (0.0-0.6); ABSOLUTE LYMPHOCYTES (AUTO) 1.6 10^3/uL (0.5-4.7); ABSOLUTE MONOCYTES (AUTO) 1.1 10^3/uL (0.1-1.4); ABSOLUTE NEUT (AUTO) 6.3 10^3/uL (1.7-8.2); EOSINOPHILS % (AUTO) 1.5 % (0-6); HEMATOCRIT 36.9 % (36.0-47.0); HEMOGLOBIN 12.6 g/dL (12.0-15.5); LYMPHOCYTES % (AUTO) 17.6 % (13-45); MEAN CORPUSCULAR HEMOGLOBIN 29.4 pg (27.0-33.4); MEAN CORPUSCULAR HGB CONC 34.3 g/dL (32.0-36.0); MEAN CORPUSCULAR VOLUME 86 fl (80-97); MONOCYTES % (AUTO) 11.9 % (3-13); RED CELL DISTRIBUTION WIDTH 19.5 % (11.5-14.0); TOTAL CELLS COUNTED % (AUTO) 100 %; WHITE BLOOD COUNT 9.2 10^3/uL (4.0-10.5)
[2017-08-30 06:47] LABS: ANION GAP 9 (5-19); BLOOD UREA NITROGEN 18 mg/dL (7-20); CALCIUM 9.3 mg/dL (8.4-10.2); CARBON DIOXIDE 27 mmol/L (22-30); CHLORIDE 104 mmol/L (98-107); GLUCOSE 102 mg/dL (75-110); POTASSIUM 3.8 mmol/L (3.6-5.0); SODIUM 140.3 mmol/L (137-145)
[2017-08-30 07:37] LABS: PLATELET COUNT 315 10^3/uL (150-450)
[2017-08-30] MEDS: LEVOFLOXACIN 750 MG/D5W RTU 750 MG/150 ML RTUPB IV SCH (09:09)
[2017-08-30] MEDS: FUROSEMIDE INJ/PF 20 MG/2 ML SDV IV SCH (09:09)
[2017-08-30] MEDS: DOCUSATE SODIUM 100 MG CAPSULE PO SCH ×2 (09:15→17:22)
--- NOTE | 2017-08-30 13:30 | PDOC CONSULTATION ---
Consultation Consult Date: 08/30/17 Attending physician:: MARY CHU Consult reason:: CHF, cardiomyopathy History of Present Illness Admission Date/PCP: 08/27/17 22:36 Patient complains of: Shortness of breath History of Present Illness: JUAN PABLO DIANE is a 66 year old female with a past medical history of hypertension. Presenting after several weeks of progressive leg edema, orthopnea and exertional shortness of breath. Additionally she has had several days of rhinorrhea, subjective fever and nonproductive cough. In the emergency room she is found to be hypertensive with systolic pressure in the 180s, tachypnea and a CT of the chest with a large right-sided pleural effusion and infiltrate. She started on empiric antibiotics and referred to the hospitalist for admission. Patient denies previous pneumonia, infectious contacts or recent antibiotic use. This history was reviewed and confirmed. Patient has been at bedside. Patient symptoms been going on for last several weeks and has been progressively worsening. Patient denied any chest pain as such. Past Medical History Cardiac Medical History: Reports: Hypertension EENT Medical History: Reports: None Neurological Medical History: Reports: None Endocrine Medical History: Reports: None Malignancy Medical History: Reports: None GI Medical History: Reports: None Musculoskeltal Medical History: Reports: None Skin Medical History: Reports: None Psychiatric Medical History: Reports: None Denies: Depression Traumatic Medical History: Reports: None Hematology: Reports: None Infectious Medical History: Reports: None Past Surgical History Past Surgical History: Reports: None Social History Information Source: Patient Lives with: Family Smoking Status: Never Smoker Frequency of Alcohol Use: Occasional Hx Recreational Drug Use: No Drugs: None Hx Prescription Drug Abuse: No - Advance Directive Resuscitation Status: Full Code Surrogate healthcare decision maker:: Patient's is the surrogate decision-maker Family History Family History: COPD Parental Family History Reviewed: Yes Children Family History Reviewed: Yes Sibling(s) Family History Reviewed.: Yes Medication/Allergy Home Medications: Lisinopril [Prinivil 10 mg Tablet] 10 mg PO QPM 08/27/17 Allergies/Adverse Reactions: No Known Allergies Allergy (Unverified 08/27/17 17:30) Review of Systems Review of Systems: Please see history of present illness and past medical history as wall. Constitutional: No fever or chills reported. Head : No recent chronic headaches, recent head injury. Eyes: No recent eye pain, diplopia, redness, discharge, acute visual changes. Ears: No recent chronic ear pain, acute hearing loss, ear discharge. Oral cavity: No recent ulcerations, bleeding, oral cavity discomfort. Neck: No recent acute neck pain reported. Hematologic: No recent easy bruising or bleeding or hematologic malignancy reported. Lymphatic: No recent lymphatic malignancy, chronic lymphadenopathy reported yet Cardiovascular system review: See history of present illness. Respiratory system review: No recent chronic cough, hemoptysis, blood clots in the lungs reported. Mild Shortness of breath on exertion Gastrointestinal system review: Negative for any recent acute or chronic abdominal pain, hematemesis, melena, recent change in bowel habits. Genitourinary system review: No recent acute or chronic hematuria, flank pain, UTI etc. reported. Skin system review: Negative for any recent abnormal bruising, no rash, no pruritus reported. Neurologic: No prior history of strokes, mini strokes, seizure disorder. Psychologic: No history of major psychosis or major depression reported. Musculoskeletal: Minor aches and pains reported. No acute joint swelling reported. Endocrine: No recent polyuria, polydipsia, recent heat or cold intolerance. Physical Exam Vital Signs: Temp Pulse Resp BP Pulse Ox 98.9 F 90 20 155/75 H 95 08/30/17 11:01 08/30/17 11:01 08/30/17 11:01 08/30/17 11:01 08/30/17 11:01 Intake & Output 08/29/17 08/30/17 08/31/17 06:59 06:59 06:59 Intake Total 110 1583 355 Output Total 0 Balance 110 1583 355 Weight 90.2 kg 88.8 kg Exam: GENERAL: well-nourished and in no acute distress. Alert and oriented x3 HEAD: Atraumatic, normocephalic. EYES: Pupils equal round and reactive to light, extraocular movements intact, sclera anicteric, conjunctiva are normal. ENT: TMs normal, nares patent, oropharynx clear without exudates. Moist mucous membranes. No oral ulcerations or bleeding gums noted NECK: supple without lymphadenopathy. Trachea is central. No cervical or axillary lymphadenopathy noted. Carotids are 2+, JVD WNL LUNGS: Respiration seems nonlabored, no significant accessory muscle action noted. Bibasilar fine crackles noted. Mild dullness noted right base. CHEST: Palpation of the chest wall shows no significant chest wall tenderness. No other significant abnormalities noted. HEART: [place] [employer] G[employer]NER, No PSH, 1/6 KAILASH aortic area, 1/6 car systolic murmur mitral area, no rubs, no gallops. ABDOMEN: Soft, no significant tenderness appreciated, normoactive bowel sounds. No guarding, no rebound. No rigidity noted . No masses appreciated. EXTREMITIES: Pedal pulses are 1-2+, no calf tenderness noted. No clubbing or cyanosis. 1+ pedal edema noted NEUROLOGICAL: Focused neurological exam showed no significant neurologic deficit. Normal speech, no focal weakness appreciated. PSYCH: Normal mood, normal affect. Judgment and insight within normal limits. SKIN: No significant ecchymosis, rash, ulcerations or signs of pruritus noted. MUSCULOSKELETAL EXAM: No significant joint swelling noted. Results Laboratory Results: 08/30/17 05:20 08/30/17 05:20 08/30/17 08/30/17 05:20 05:20 WBC 9.2 RBC 4.30 Hgb 12.6 Hct 36.9 MCV 86 MCH 29.4 MCHC 34.3 RDW 19.5 H Plt Count 315 Seg Neutrophils % 68.0 Lymphocytes % 17.6 Monocytes % 11.9 Eosinophils % 1.5 Basophils % 1.0 Absolute Neutrophils 6.3 Absolute Lymphocytes 1.6 Absolute Monocytes 1.1 Absolute Eosinophils 0.1 Absolute Basophils 0.1 Sodium 140.3 Potassium 3.8 Chloride 104 Carbon Dioxide 27 Anion Gap 9 BUN 18 Creatinine 0.48 L Est GFR ( Amer) > 60 Est GFR (Non-Af Amer) > 60 Glucose 102 Calcium 9.3 08/27/17 08/27/17 08/28/17 22:45 22:45 04:30 Creatine Kinase 46 53 CK-MB (CK-2) 1.29 Troponin I 0.039 08/28/17 08/28/17 08/28/17 04:30 10:15 10:15 Creatine Kinase 64 CK-MB (CK-2) 1.37 1.63 Troponin I 0.049 0.047 EKG Comments: Sinus tachycardia, left axis deviation, nonprogression of R-wave anterior precordial leads. Impressions: Abdomen/Pelvis CT 08/28/17 00:00 IMPRESSION: 1. Moderate right lower lobar pneumonia. Moderate-large right pleural effusion. 2. No acute intra-abdominal/pelvic findings. Chest CT 08/28/17 00:00 IMPRESSION: 1. Moderate right lower lobar pneumonia. Moderate-large right pleural effusion. 2. No acute intra-abdominal/pelvic findings. Chest X-Ray 08/29/17 00:00 IMPRESSION: No pneumothorax. Thoracentesis Ultrasound 08/29/17 09:34 IMPRESSION: SUCCESSFUL THORACENTESIS USING ULTRASOUND GUIDANCE. Assessment & Plan - Diagnosis (1) Congestive heart failure (CHF) Qualifiers: Heart failure type: combined systolic and diastolic Heart failure chronicity: acute Qualified Code(s): I50.41 - Acute combined systolic ( congestive) and diastolic (congestive) heart failure Is this a current diagnosis for this admission?: Yes (2) Hypertension Qualifiers: Hypertension type: essential hypertension Qualified Code(s): I10 - Essential (primary) hypertension Is this a current diagnosis for this admission?: Yes (3) Cardiomyopathy Qualifiers: Cardiomyopathy type: unspecified Qualified Code(s): I42.9 - Cardiomyopathy , unspecified Is this a current diagnosis for this admission?: Yes (4) Pleural effusion Is this a current diagnosis for this admission?: Yes - Notes Notes: Congestive heart failure: Continue current diuretic therapy. Monitor with chest x-ray and BNP level. Hypertension: Started patient on entresto in view of significantly depressed LVEF. Monitor blood pressure. Blood pressure goal should be 135/85 or less. Cardiomyopathy: Patient was noted to have some wall motion abnormalities. Will consider a nuclear stress test prior to discharge. Pleural effusion: Patient is status post thoracentesis. Will follow results. Patient's medications reviewed. Patient will benefit from CHF education. - Time Time Spent: 30 to 50 Minutes - CODE STATUS was discussed, patient remains full code. Surrogate decision-maker unchanged. Multiple medical problems were addressed. More than 50% of the time spent coordinating care, discussing management plans with involved caregivers. Management plans discussed with involved personnels. Medical decision making was of moderate to high complexity , patient's has multiple comorbidities. Medications reviewed and adjusted accordingly: Yes
--- NOTE | 2017-08-30 14:56 | PDOC PROGRESS REPORT ---
Subjective Progress Note for:: 08/30/17 Subjective:: Breathing continues to improve. No fever or chills. Cough improved. at bedside. No chest pain or palpitations. Reason For Visit: UTI CHF LARGE R PLEURAL EFFUSION Physical Exam Vital Signs: Temp Pulse Resp BP Pulse Ox 98.9 F 90 20 155/75 H 95 08/30/17 11:01 08/30/17 11:01 08/30/17 11:01 08/30/17 11:01 08/30/17 11:01 Intake & Output 08/29/17 08/30/17 08/31/17 06:59 06:59 06:59 Intake Total 110 1583 355 Output Total 0 Balance 110 1583 355 Weight 90.2 kg 88.8 kg GEN: NAD, well-deloped, well-nourished CV: RRR, NL S1S2 LUNGS: Few basilar crackles ABDOMEN Soft, NT, +BS EXTERMITIES: 1-2+ lower extremity edema NEURO: Alert, oriented 3 Results Laboratory Results: 08/30/17 05:20 08/30/17 05:20 08/30/17 08/30/17 05:20 05:20 WBC 9.2 RBC 4.30 Hgb 12.6 Hct 36.9 MCV 86 MCH 29.4 MCHC 34.3 RDW 19.5 H Plt Count 315 Seg Neutrophils % 68.0 Lymphocytes % 17.6 Monocytes % 11.9 Eosinophils % 1.5 Basophils % 1.0 Absolute Neutrophils 6.3 Absolute Lymphocytes 1.6 Absolute Monocytes 1.1 Absolute Eosinophils 0.1 Absolute Basophils 0.1 Sodium 140.3 Potassium 3.8 Chloride 104 Carbon Dioxide 27 Anion Gap 9 BUN 18 Creatinine 0.48 L Est GFR ( Amer) > 60 Est GFR (Non-Af Amer) > 60 Glucose 102 Calcium 9.3 08/27/17 08/27/17 08/28/17 22:45 22:45 04:30 Creatine Kinase 46 53 CK-MB (CK-2) 1.29 Troponin I 0.039 08/28/17 08/28/17 08/28/17 04:30 10:15 10:15 Creatine Kinase 64 CK-MB (CK-2) 1.37 1.63 Troponin I 0.049 0.047 Impressions: Abdomen/Pelvis CT 08/28/17 00:00 IMPRESSION: 1. Moderate right lower lobar pneumonia. Moderate-large right pleural effusion. 2. No acute intra-abdominal/pelvic findings. Chest CT 08/28/17 00:00 IMPRESSION: 1. Moderate right lower lobar pneumonia. Moderate-large right pleural effusion. 2. No acute intra-abdominal/pelvic findings. Chest X-Ray 08/29/17 00:00 IMPRESSION: No pneumothorax. Thoracentesis Ultrasound 08/29/17 09:34 IMPRESSION: SUCCESSFUL THORACENTESIS USING ULTRASOUND GUIDANCE. Assessment & Plan - Diagnosis (1) Pneumonia Qualifiers: Pneumonia type: due to unspecified organism Laterality: right Lung location: lower lobe of lung Qualified Code(s): J18.1 - Lobar pneumonia, unspecified organism Is this a current diagnosis for this admission?: Yes Plan: Continue Levaquin antibiotics. (2) Congestive heart failure (CHF) Qualifiers: Heart failure type: unspecified Heart failure chronicity: acute Qualified Code(s): I50.9 - Heart failure, unspecified Is this a current diagnosis for this admission?: Yes Plan: This is now established to be acute on chronic combined systolic and diastolic CHF. 2D echo with estimated EF 30%, grade 2 left ventricular diastolic dysfunction, elevated RVSP 57. Continue Lasix. Cardiology Dr. Mullen consulted - his recommendations appreciated. He has started Entresto. Stress test, others per his recommendation. (3) Dyspnea on exertion Is this a current diagnosis for this admission?: Yes Plan: Multifactorial, improved. (4) Pleural effusion Is this a current diagnosis for this admission?: Yes Plan: Continue gentle diuresis. Status post thoracentesis 08/29/17. (5) Urinary tract infection Qualifiers: Urinary tract infection type: site unspecified Hematuria presence: without hematuria Qualified Code(s): N39.0 - Urinary tract infection, site not specified Is this a current diagnosis for this admission?: Yes Plan: UA + E. coli sensitive to Levaquin. Continue same abx. Patient remains afebrile and hemodynamically stable.
[2017-08-30] MEDS ORDERED: LEVALBUTEROL HCL NEB 1.25 MG/3 ML AMPUL NEB PRN (17:17)
[2017-08-30] MEDS: SACUBITRIL/VALSARTAN 24 MG/26 MG TABLET PO SCH (17:20)
--- NOTE | 2017-08-30 22:04 | EKG REPORT ---
SEVERITY:- ABNORMAL ECG - SINUS RHYTHM PROBABLE LEFT ATRIAL ABNORMALITY LVH WITH SECONDARY REPOLARIZATION ABNORMALITY : Confirmed by: Soraida Mullen 30-Aug-2017 22:03:23
[2017-08-31 06:05] LABS: TOTAL PROTEIN BODY FLUID 3.9 g/dL (.)
[2017-08-31 06:18] LABS: ABSOLUTE BASOPHILS # (AUTO) 0.1 10^3/uL (0.0-0.2); ABSOLUTE EOSINOPHILS # (AUTO) 0.2 10^3/uL (0.0-0.6); ABSOLUTE LYMPHOCYTES (AUTO) 1.4 10^3/uL (0.5-4.7); ABSOLUTE MONOCYTES (AUTO) 1.1 10^3/uL (0.1-1.4); ABSOLUTE NEUT (AUTO) 5.4 10^3/uL (1.7-8.2); BASOPHILS % (AUTO) 1.5 % (0-2); HEMATOCRIT 39.5 % (36.0-47.0); HEMOGLOBIN 13.4 g/dL (12.0-15.5); LYMPHOCYTES % (AUTO) 16.8 % (13-45); MEAN CORPUSCULAR HEMOGLOBIN 29.4 pg (27.0-33.4); MEAN CORPUSCULAR VOLUME 86 fl (80-97); MONOCYTES % (AUTO) 12.8 % (3-13); PLATELET COUNT 362 10^3/uL (150-450); RED BLOOD COUNT 4.58 10^6/uL (3.72-5.28); RED CELL DISTRIBUTION WIDTH 19.5 % (11.5-14.0); SEGMENTED NEUTROPHILS % (AUTO) 65.9 % (42-78); TOTAL CELLS COUNTED % (AUTO) 100 %; WHITE BLOOD COUNT 8.2 10^3/uL (4.0-10.5)
[2017-08-31 06:58] LABS: ANION GAP 13 (5-19); BLOOD UREA NITROGEN 15 mg/dL (7-20); CALCIUM 9.3 mg/dL (8.4-10.2); CARBON DIOXIDE 28 mmol/L (22-30); CHLORIDE 102 mmol/L (98-107); GLUCOSE 111 mg/dL (75-110); POTASSIUM 3.3 mmol/L (3.6-5.0); SODIUM 142.6 mmol/L (137-145)
[2017-08-31] MEDS: HEPARIN SOD (PORCINE) 5,000 UNIT/ML 1 ML SYRINGE SUBCUT SCH ×3 (07:06→21:13)
[2017-08-31] MEDS: SACUBITRIL/VALSARTAN 24 MG/26 MG TABLET PO SCH ×2 (08:46→17:18)
[2017-08-31] MEDS: DOCUSATE SODIUM 100 MG CAPSULE PO SCH ×2 (09:56→17:10)
[2017-08-31] MEDS: TORSEMIDE 20 MG TABLET PO SCH (10:22)
[2017-08-31] MEDS: DIGOXIN 0.125 MG TABLET PO SCH (10:23)
[2017-08-31] MEDS: CARVEDILOL 3.125 MG TABLET PO SCH ×2 (10:25→21:12)
[2017-08-31] MEDS: LEVOFLOXACIN 750 MG/D5W RTU 750 MG/150 ML RTUPB IV SCH (10:26)
--- NOTE | 2017-08-31 12:44 | PDOC PROGRESS REPORT ---
Subjective Progress Note for:: 08/31/17 Subjective:: Doing much better. Breathing continues to improve. However, complain of significant urinary frequency, no dysuria. No fever or chills. Cough improved. at bedside. No chest pain or palpitations. No flank pain. Reason For Visit: UTI CHF LARGE R PLEURAL EFFUSION Physical Exam Vital Signs: Temp Pulse Resp BP Pulse Ox 99.8 F 104 H 16 169/91 H 98 08/31/17 08:00 08/31/17 08:00 08/31/17 08:00 08/31/17 08:00 08/31/17 08:00 Intake & Output 08/30/17 08/31/17 09/01/17 06:59 06:59 06:59 Intake Total 1583 1180 Output Total 0 Balance 1583 1180 Weight 88.8 kg 88.9 kg GEN: NAD, well-deloped, well-nourished CV: RRR, NL S1S2 LUNGS: Few basilar crackles ABDOMEN Soft, NT, +BS EXTERMITIES: 1-2+ lower extremity edema NEURO: Alert, oriented 3, no focal weakness Results Laboratory Results: 08/31/17 05:19 08/31/17 05:19 08/29/17 08/31/17 08/31/17 11:50 05:19 05:19 WBC 8.2 RBC 4.58 Hgb 13.4 Hct 39.5 MCV 86 MCH 29.4 MCHC 34.0 RDW 19.5 H Plt Count 362 Seg Neutrophils % 65.9 Lymphocytes % 16.8 Monocytes % 12.8 Eosinophils % 3.0 Basophils % 1.5 Absolute Neutrophils 5.4 Absolute Lymphocytes 1.4 Absolute Monocytes 1.1 Absolute Eosinophils 0.2 Absolute Basophils 0.1 Sodium 142.6 Potassium 3.3 L Chloride 102 Carbon Dioxide 28 Anion Gap 13 BUN 15 Creatinine 0.47 L Est GFR ( Amer) > 60 Est GFR (Non-Af Amer) > 60 Glucose 111 H Calcium 9.3 Fluid Glucose 139 Fluid Total Protein 3.9 Fluid LDH 228 08/27/17 08/27/17 08/28/17 22:45 22:45 04:30 Creatine Kinase 46 53 CK-MB (CK-2) 1.29 Troponin I 0.039 08/28/17 08/28/17 08/28/17 04:30 10:15 10:15 Creatine Kinase 64 CK-MB (CK-2) 1.37 1.63 Troponin I 0.049 0.047 Impressions: Abdomen/Pelvis CT 08/28/17 00:00 IMPRESSION: 1. Moderate right lower lobar pneumonia. Moderate-large right pleural effusion. 2. No acute intra-abdominal/pelvic findings. Chest CT 08/28/17 00:00 IMPRESSION: 1. Moderate right lower lobar pneumonia. Moderate-large right pleural effusion. 2. No acute intra-abdominal/pelvic findings. Chest X-Ray 08/29/17 00:00 IMPRESSION: No pneumothorax. Thoracentesis Ultrasound 08/29/17 09:34 IMPRESSION: SUCCESSFUL THORACENTESIS USING ULTRASOUND GUIDANCE. Assessment & Plan - Diagnosis (1) Pneumonia Qualifiers: Pneumonia type: due to unspecified organism Laterality: right Lung location: lower lobe of lung Qualified Code(s): J18.1 - Lobar pneumonia, unspecified organism Is this a current diagnosis for this admission?: Yes Plan: Continue Levaquin antibiotics. (2) Congestive heart failure (CHF) Qualifiers: Heart failure type: combined systolic and diastolic Heart failure chronicity: acute Qualified Code(s): I50.41 - Acute combined systolic ( congestive) and diastolic (congestive) heart failure Is this a current diagnosis for this admission?: Yes Plan: This is now established to be acute on chronic combined systolic and diastolic CHF. 2D echo with estimated EF 30%, grade 2 left ventricular diastolic dysfunction, elevated RVSP 57. Core Extruder Dr. Mullen follow-up appreciated. Continue Entresto. Stress test result pending. Lasix has been changed to torsemide by cardiology. Coreg started. (3) Dyspnea on exertion Is this a current diagnosis for this admission?: Yes Plan: Multifactorial, improved. (4) Pleural effusion Is this a current diagnosis for this admission?: Yes Plan: Continue diuresis. Status post thoracentesis 08/29/17. (5) Urinary tract infection Qualifiers: Urinary tract infection type: site unspecified Hematuria presence: without hematuria Qualified Code(s): N39.0 - Urinary tract infection, site not specified Is this a current diagnosis for this admission?: Yes Plan: UA + E. coli sensitive to Levaquin. Continue same abx. Patient remains afebrile and hemodynamically stable. We will recheck UA given his significant symptoms, although diuretics may be contributory.
[2017-08-31] MEDS ORDERED: POTASSIUM CHLORIDE 10 MEQ TABLET.SA PO ONE (13:30)
--- NOTE | 2017-08-31 17:04 | PDOC PROGRESS REPORT ---
Subjective Progress Note for:: 08/31/17 Subjective:: Patient seems to be doing better with gradual improvement. Pt is denying any chest arm or neck discomfort. Patient denying any PND, orthopnea. Patient denied any sustained palpitations, dizziness, syncope, near syncope. Patient denying any fever chills. Patient denying any other significant discomfort. Patient complaining of significant problems with urinary frequency last night. Patient is maintaining sinus rhythm. Nuclear stress test procedure was explained to the patient in detail. Risks benefits were discussed and informed consent was obtained. Alternatives were discussed. Patient informed that based on risk factors, physical exam, lab data findings and symptoms there is at least intermediate probability of underlying CAD. Nuclear stress test procedure was therefore scheduled. Review of systems: Rest review of systems negative. Medications: Medications have been reviewed. Reason For Visit: UTI CHF LARGE R PLEURAL EFFUSION Physical Exam Vital Signs: Temp Pulse Resp BP Pulse Ox 98.8 F 78 14 137/68 H 94 08/31/17 15:25 08/31/17 15:25 08/31/17 15:25 08/31/17 15:25 08/31/17 15:25 Intake & Output 08/30/17 08/31/17 09/01/17 06:59 06:59 06:59 Intake Total 1583 1180 118 Output Total 0 Balance 1583 1180 118 Weight 88.8 kg 88.9 kg Exam: GENERAL: well-nourished and in no acute distress. Alert and oriented x3 HEAD: Atraumatic, normocephalic. EYES: Pupils equal round and reactive to light, extraocular movements intact, sclera anicteric, conjunctiva are normal. ENT: TMs normal, nares patent, oropharynx clear without exudates. Moist mucous membranes. No oral ulcerations or bleeding gums noted NECK: supple without lymphadenopathy. Trachea is central. No cervical or axillary lymphadenopathy noted. Carotids are 2+, JVD WNL LUNGS: Respiration seems nonlabored, no significant accessory muscle action noted. Breath sounds clear to auscultation bilaterally and equal noted. No wheezes rales or rhonchi noted. No significant dullness noted on percussion. CHEST: Palpation of the chest wall shows no significant chest wall tenderness. No other significant abnormalities noted. 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 ABDOMEN: Soft, no significant tenderness appreciated, normoactive bowel sounds. No guarding, no rebound. No rigidity noted . No masses appreciated. EXTREMITIES: Pedal pulses are 1-2+, no calf tenderness noted. No clubbing or cyanosis.trace to 1+ pedal edema noted NEUROLOGICAL: Focused neurological exam showed no significant neurologic deficit. Normal speech, no focal weakness appreciated. PSYCH: Normal mood, normal affect. Judgment and insight within normal limits. SKIN: No significant ecchymosis, rash, ulcerations or signs of pruritus noted. MUSCULOSKELETAL EXAM: No significant joint swelling noted. Results Laboratory Results: 08/31/17 05:19 08/31/17 05:19 08/29/17 08/31/17 08/31/17 11:50 05:19 05:19 WBC 8.2 RBC 4.58 Hgb 13.4 Hct 39.5 MCV 86 MCH 29.4 MCHC 34.0 RDW 19.5 H Plt Count 362 Seg Neutrophils % 65.9 Lymphocytes % 16.8 Monocytes % 12.8 Eosinophils % 3.0 Basophils % 1.5 Absolute Neutrophils 5.4 Absolute Lymphocytes 1.4 Absolute Monocytes 1.1 Absolute Eosinophils 0.2 Absolute Basophils 0.1 Sodium 142.6 Potassium 3.3 L Chloride 102 Carbon Dioxide 28 Anion Gap 13 BUN 15 Creatinine 0.47 L Est GFR ( Amer) > 60 Est GFR (Non-Af Amer) > 60 Glucose 111 H Calcium 9.3 Fluid Glucose 139 Fluid Total Protein 3.9 Fluid LDH 228 08/27/17 08/27/17 08/28/17 22:45 22:45 04:30 Creatine Kinase 46 53 CK-MB (CK-2) 1.29 Troponin I 0.039 08/28/17 08/28/17 08/28/17 04:30 10:15 10:15 Creatine Kinase 64 CK-MB (CK-2) 1.37 1.63 Troponin I 0.049 0.047 Impressions: Abdomen/Pelvis CT 08/28/17 00:00 IMPRESSION: 1. Moderate right lower lobar pneumonia. Moderate-large right pleural effusion. 2. No acute intra-abdominal/pelvic findings. Chest CT 08/28/17 00:00 IMPRESSION: 1. Moderate right lower lobar pneumonia. Moderate-large right pleural effusion. 2. No acute intra-abdominal/pelvic findings. Chest X-Ray 08/29/17 00:00 IMPRESSION: No pneumothorax. Thoracentesis Ultrasound 08/29/17 09:34 IMPRESSION: SUCCESSFUL THORACENTESIS USING ULTRASOUND GUIDANCE. Assessment & Plan - Diagnosis (1) Congestive heart failure (CHF) Qualifiers: Heart failure type: combined systolic and diastolic Heart failure chronicity: acute Qualified Code(s): I50.41 - Acute combined systolic ( congestive) and diastolic (congestive) heart failure Is this a current diagnosis for this admission?: Yes (2) Hypertension Qualifiers: Hypertension type: essential hypertension Qualified Code(s): I10 - Essential (primary) hypertension Is this a current diagnosis for this admission?: Yes (3) Cardiomyopathy Qualifiers: Cardiomyopathy type: unspecified Qualified Code(s): I42.9 - Cardiomyopathy , unspecified Is this a current diagnosis for this admission?: Yes (4) Pleural effusion Is this a current diagnosis for this admission?: Yes (5) Urinary tract infection Qualifiers: Urinary tract infection type: site unspecified Hematuria presence: without hematuria Qualified Code(s): N39.0 - Urinary tract infection, site not specified Is this a current diagnosis for this admission?: Yes (6) Coronary artery disease Qualifiers: Coronary Disease-Associated Artery/Lesion type: [place] artery [place] vs. transplanted heart: [place] heart Associated angina: angina presence unspecified Qualified Code(s): I25.10 - Atherosclerotic heart disease of [place] coronary artery without angina pectoris Is this a current diagnosis for this admission?: Yes - Notes Notes: Congestive heart failure: Continue current diuretic therapy. Monitor with chest x-ray and BNP level. Have switched patient to p.o. torsemide. Have also placed patient on carvedilol. Continue entresto. Hypertension: Continue on entresto in view of significantly depressed LVEF. Have added carvedilol today monitor blood pressure. Blood pressure goal should be 135/85 or less. Cardiomyopathy: Patient was noted to have some wall motion abnormalities. Patient had stress test today. Results pending at the time of dictation. Pleural effusion: Patient is status post thoracentesis. Results suggest that it is transudate and most likely related to CHF. Recommend follow-up chest x- ray/CT chest prior to discharge. Coronary artery disease: This is felt to be present based on coronary calcium noted on CTA. Recommend statin, aspirin, beta-manas, JULIET inhibitor/ARB therapy. Being evaluated by nuclear stress test. Patient's medications reviewed. Patient will benefit from CHF education. Urinary tract infection: Consider switch to ciprofloxacin which does not increase QTC as much as levofloxacin. - Time Time with patient: Greater than 35 minutes - CODE STATUS was discussed, patient remains full code. Surrogate decision-maker unchanged. Multiple medical problems were addressed. More than 50% of the time spent coordinating care, discussing management plans with involved caregivers. Management plans discussed with involved personnels. Medical decision making was of moderate to high complexity, patient's has multiple comorbidities. Medications reviewed and adjusted accordingly: Yes
--- NOTE | 2017-08-31 18:18 | DRAGON STRESS TEST REPORT ---
INTRAVENOUS LEXISCAN CARDIOLITE STRESS TEST USING SINGLE PHOTON EMMISION COMPUTERIZED TOMOGRAPHIC. DATE OF PROCEDURE: August 31, 2017, INDICATION : Shortness of breath, cardiomyopathy, abnormal echocardiogram CARDIAC RISK FACTORS: Hypertension RESTING EKG: Sinus rhythm, left axis deviation, nonspecific IVCD STRESS EKG: No significant changes noted with LexiScan bolus REASON FOR TERMINATION: Protocol. PROCEDURE REPORT: Baseline heart rate 104 beats per minute with blood pressure of 138/76 . Patient had no significant complaints. Heart rate at 2 minutes post bolus 107 with a blood pressure of 143/79. 3 minutes post bolus heart rate 109 with blood pressure of 153/78. No significant EKG changes were noted. Patient had no significant complaints during the procedure or postprocedure. Patient injected with Aminophyllin 75 mg at 3 minutes or later after Lexiscan bolus. CONCLUSIONS: Normal EKG and hemodynamic response to IV LexiScan. NUCLEAR DATA: At rest the patient was given 13.53 millicuries of technetium 99 sestamibi injected intravenously. As per protocol rest gated SPECT images were obtained. On day of stress test, the patient was given intravenous LexiScan at a dose of 0.4 mg in 5 mL intravenously, followed by flush with normal saline. Subsequently the stress dose of 40.3 millicuries of technetium 99 sestamibi was injected intravenously. As per protocol stress gated images were obtained. NUCLEAR INTERPRETATION: Both raw and processed data were used for interpretation. Visual, qualitative, computer-generated quantitative data was used. There was good myocardial uptake of technetium compound. Motion artifact and soft tissue attenuations were noted. Marked increased visceral uptake was noted. No definitive areas of transient perfusion defect noted, No definitive areas of fixed perfusion defect or scars noted. Study quality however was somewhat suboptimal. EKG gated imaging showed LV EF at 32 %, rest and stress gated EF similar visually. T. I D. ratio was 1.13. Lung heart ratio noted to be within normal limits 0.26. No significant extracardiac and abnormal radiotracer activities were noted. RV free wall uptake was noted to be WNL. IMPRESSION: Also refer to comments under nuclear interpretation. Also test results needs to be interpreted in the context of pretest probability. 1. No definitive areas of transient perfusion defect noted. 2. There is no definitive scintigraphic evidence of myocardial infarction/scar. 3. EKG gated imaging shows left ventricular ejection fraction of approx. 32 %, diffuse hypokinesia noted. 4. Clinical correlation requested as occasionally single vessel disease or balanced ischemia could be missed. In approximately 10% of the cases Lexiscan may not cause adequate vasodilatory stress. RECOMMENDATIONS: Aggressive risk factor modification and medical management. Further evaluation may be needed if continued symptoms or other high risk indicators are noted on clinical evaluation. Close cardiology follow-up is also recommended. Clinical correlation with echocardiogram derived ejection fraction. Inability to exercise by itself can lead to increased cardiovascular event risks. Consider cardiology consultation and or follow-up if clinically indicated. I am available for cardiology evaluation and consultation if requested by the primary teaching assistant, unless patient already has a manager video games. CAMILLA
[2017-08-31] MEDS ORDERED: ATORVASTATIN CALCIUM 40 MG TABLET PO SCH (22:00)
[2017-09-01 06:22] LABS: ABSOLUTE BASOPHILS # (AUTO) 0.1 10^3/uL (0.0-0.2); ABSOLUTE EOSINOPHILS # (AUTO) 0.2 10^3/uL (0.0-0.6); ABSOLUTE LYMPHOCYTES (AUTO) 1.5 10^3/uL (0.5-4.7); ABSOLUTE NEUT (AUTO) 4.8 10^3/uL (1.7-8.2); BASOPHILS % (AUTO) 1.6 % (0-2); EOSINOPHILS % (AUTO) 3.1 % (0-6); HEMATOCRIT 40.7 % (36.0-47.0); HEMOGLOBIN 13.9 g/dL (12.0-15.5); LYMPHOCYTES % (AUTO) 19.8 % (13-45); MEAN CORPUSCULAR HEMOGLOBIN 29.3 pg (27.0-33.4); MEAN CORPUSCULAR HGB CONC 34.1 g/dL (32.0-36.0); MEAN CORPUSCULAR VOLUME 86 fl (80-97); MONOCYTES % (AUTO) 13.3 % (3-13); PLATELET COUNT 348 10^3/uL (150-450); RED BLOOD COUNT 4.74 10^6/uL (3.72-5.28); RED CELL DISTRIBUTION WIDTH 19.1 % (11.5-14.0); SEGMENTED NEUTROPHILS % (AUTO) 62.2 % (42-78); TOTAL CELLS COUNTED % (AUTO) 100 %; WHITE BLOOD COUNT 7.6 10^3/uL (4.0-10.5)
[2017-09-01] MEDS: HEPARIN SOD (PORCINE) 5,000 UNIT/ML 1 ML SYRINGE SUBCUT SCH ×2 (06:36→14:08)
[2017-09-01] MEDS: SACUBITRIL/VALSARTAN 24 MG/26 MG TABLET PO SCH (06:36)
[2017-09-01 06:46] LABS: ANION GAP 9 (5-19); BLOOD UREA NITROGEN 19 mg/dL (7-20); CALCIUM 9.4 mg/dL (8.4-10.2); CARBON DIOXIDE 28 mmol/L (22-30); CHLORIDE 103 mmol/L (98-107); GLUCOSE 109 mg/dL (75-110); SODIUM 140.4 mmol/L (137-145)
[2017-09-01] MEDS: TORSEMIDE 20 MG TABLET PO SCH (11:08)
[2017-09-01] MEDS: LEVOFLOXACIN 750 MG/D5W RTU 750 MG/150 ML RTUPB IV SCH (11:09)
[2017-09-01] MEDS: DIGOXIN 0.125 MG TABLET PO SCH (11:09)
[2017-09-01] MEDS: DOCUSATE SODIUM 100 MG CAPSULE PO SCH (11:10)
[2017-09-01] MEDS ORDERED: REGADENOSON INJ 0.4 MG/5 ML DISP.SYRIN IV ONE (11:17)
[2017-09-01] MEDS ORDERED: AMINOPHYLLINE INJ/PF 250 MG/10 ML SDV IV ONE (11:17)
[2017-09-01] MEDS ORDERED: CARVEDILOL 6.25 MG TABLET PO ONE (11:30)
--- NOTE | 2017-09-01 12:28 | PDOC PROGRESS REPORT ---
Subjective Progress Note for:: 09/01/17 Subjective:: Discussed increased risk of sudden cardiac and dangerous ventricular dysrhythmia in patient with depressed LVEF. Discussed that we could evaluate her further with her limited 2D echocardiogram and possibly a MUGA scan. However patient was very reluctant to pursue any additional testing and wanted to be discharged. Patient seems to be doing better with gradual improvement. Pt is denying any chest arm or neck discomfort. Patient denying any PND, orthopnea. Patient denied any sustained palpitations, dizziness, syncope, near syncope. Patient denying any fever chills. Patient denying any other significant discomfort. Patient's urinary frequency has resolved. Patient is maintaining sinus rhythm. Nuclear stress test results were discussed. No definite transient perfusion defect or ischemia noted. However study quality was somewhat suboptimal. Review of systems: Rest review of systems negative. Medications: Medications have been reviewed. Reason For Visit: UTI CHF LARGE R PLEURAL EFFUSION Physical Exam Vital Signs: Temp Pulse Resp BP Pulse Ox 98.6 F 76 18 144/82 H 94 09/01/17 07:42 09/01/17 07:42 09/01/17 07:42 09/01/17 07:42 09/01/17 07:42 Intake & Output 08/31/17 09/01/17 09/02/17 06:59 06:59 06:59 Intake Total 1180 1178 Balance 1180 1178 Weight 88.9 kg 89.6 kg Exam: GENERAL: well-nourished and in no acute distress. Alert and oriented x3 HEAD: Atraumatic, normocephalic. EYES: Pupils equal round and reactive to light, extraocular movements intact, sclera anicteric, conjunctiva are normal. ENT: TMs normal, nares patent, oropharynx clear without exudates. Moist mucous membranes. No oral ulcerations or bleeding gums noted NECK: supple without lymphadenopathy. Trachea is central. No cervical or axillary lymphadenopathy noted. Carotids are 2+, JVD WNL LUNGS: Respiration seems nonlabored, no significant accessory muscle action noted. Few bibasilar crackles are noted. Minimal dullness noted right base. CHEST: Palpation of the chest wall shows no significant chest wall tenderness. No other significant abnormalities noted. 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 ABDOMEN: Soft, no significant tenderness appreciated, normoactive bowel sounds. No guarding, no rebound. No rigidity noted . No masses appreciated. EXTREMITIES: Pedal pulses are 1-2+, no calf tenderness noted. No clubbing or cyanosis.trace to 1+ pedal edema noted NEUROLOGICAL: Focused neurological exam showed no significant neurologic deficit. Normal speech, no focal weakness appreciated. PSYCH: Normal mood, normal affect. Judgment and insight within normal limits. SKIN: No significant ecchymosis, rash, ulcerations or signs of pruritus noted. MUSCULOSKELETAL EXAM: No significant joint swelling noted. Results Laboratory Results: 09/01/17 05:25 09/01/17 05:25 09/01/17 09/01/17 05:25 05:25 WBC 7.6 RBC 4.74 Hgb 13.9 Hct 40.7 MCV 86 MCH 29.3 MCHC 34.1 RDW 19.1 H Plt Count 348 Seg Neutrophils % 62.2 Lymphocytes % 19.8 Monocytes % 13.3 H Eosinophils % 3.1 Basophils % 1.6 Absolute Neutrophils 4.8 Absolute Lymphocytes 1.5 Absolute Monocytes 1.0 Absolute Eosinophils 0.2 Absolute Basophils 0.1 Sodium 140.4 Potassium 4.0 Chloride 103 Carbon Dioxide 28 Anion Gap 9 BUN 19 Creatinine 0.51 L Est GFR ( Amer) > 60 Est GFR (Non-Af Amer) > 60 Glucose 109 Calcium 9.4 08/27/17 08/27/17 08/28/17 22:45 22:45 04:30 Creatine Kinase 46 53 CK-MB (CK-2) 1.29 Troponin I 0.039 NT-Pro-B Natriuret Pep 08/28/17 08/28/17 08/28/17 04:30 10:15 10:15 Creatine Kinase 64 CK-MB (CK-2) 1.37 1.63 Troponin I 0.049 0.047 NT-Pro-B Natriuret Pep 09/01/17 05:25 Creatine Kinase CK-MB (CK-2) Troponin I NT-Pro-B Natriuret Pep 2210 H EKG Comments: Telemetry strips shows sinus rhythm without any sustained tacky or bradycardia arrhythmias. Impressions: Abdomen/Pelvis CT 08/28/17 00:00 IMPRESSION: 1. Moderate right lower lobar pneumonia. Moderate-large right pleural effusion. 2. No acute intra-abdominal/pelvic findings. Chest CT 08/28/17 00:00 IMPRESSION: 1. Moderate right lower lobar pneumonia. Moderate-large right pleural effusion. 2. No acute intra-abdominal/pelvic findings. Chest X-Ray 08/29/17 00:00 IMPRESSION: No pneumothorax. Thoracentesis Ultrasound 08/29/17 09:34 IMPRESSION: SUCCESSFUL THORACENTESIS USING ULTRASOUND GUIDANCE. Assessment & Plan - Diagnosis (1) Congestive heart failure (CHF) Qualifiers: Heart failure type: combined systolic and diastolic Heart failure chronicity: acute Qualified Code(s): I50.41 - Acute combined systolic ( congestive) and diastolic (congestive) heart failure Is this a current diagnosis for this admission?: Yes (2) Hypertension Qualifiers: Hypertension type: essential hypertension Qualified Code(s): I10 - Essential (primary) hypertension Is this a current diagnosis for this admission?: Yes (3) Cardiomyopathy Qualifiers: Cardiomyopathy type: unspecified Qualified Code(s): I42.9 - Cardiomyopathy , unspecified Is this a current diagnosis for this admission?: Yes (4) Pleural effusion Is this a current diagnosis for this admission?: Yes (5) Urinary tract infection Qualifiers: Urinary tract infection type: site unspecified Hematuria presence: without hematuria Qualified Code(s): N39.0 - Urinary tract infection, site not specified Is this a current diagnosis for this admission?: Yes (6) Coronary artery disease Qualifiers: Coronary Disease-Associated Artery/Lesion type: [place] artery [place] vs. transplanted heart: [place] heart Associated angina: angina presence unspecified Qualified Code(s): I25.10 - Atherosclerotic heart disease of [place] coronary artery without angina pectoris Is this a current diagnosis for this admission?: Yes - Notes Notes: Congestive heart failure: Continue current diuretic therapy. Chest x-ray ordered. Continue patient to p.o. torsemide. Have also placed patient on carvedilol. Continue entresto. These medications are being gradually optimized. Chest x-ray results reviewed. Limited 2D echo results reviewed. Hypertension: Continue on entresto in view of significantly depressed LVEF. Have added carvedilol today monitor blood pressure. Blood pressure goal should be 135/85 or less. Dose of carvedilol increased to 6.25 p.o. every 12. Cardiomyopathy: Patient was noted to have some wall motion abnormalities. Stress test however did not show any significant perfusion defects. Have requested a repeat limited echo to look at EF and wall motion. Biplane echo shows EF of 34% with no significant wall motion abnormalities being noted. Pleural effusion: Patient is status post thoracentesis. Results suggest that it is transudate and most likely related to CHF. Recommend follow-up chest x- ray/CT chest prior to discharge. A chest x-ray was ordered today. Checks x- ray reviewed minimal pleural effusion with minimal amount of fluid in the inter lobar fissure. Coronary artery disease: This is felt to be present based on coronary calcium noted on CTA. Recommend statin, aspirin, beta-manas, JULIET inhibitor/ARB therapy. Nuclear stress test however negative for any significant perfusion defect. Patient's medications reviewed. Patient will benefit from CHF education. Urinary tract infection: Consider switch to ciprofloxacin which does not increase QTC as much as levofloxacin. Patient was advised to be discharged on LifeVest but she declined this. Increased risk of sudden cardiac were discussed with this patient in the morning on morning rounds. Patient was also advised to MUGA scan but she declined to pursue that option. - Time Time with patient: Greater than 35 minutes - CODE STATUS was discussed, patient remains full code. Surrogate decision-maker unchanged. Multiple medical problems were addressed. More than 50% of the time spent coordinating care, discussing management plans with involved caregivers. Management plans discussed with involved personnels. Patient's questions were answered. Nuclear stress test results were discussed with the patient. Patient was informed that no definitive evidence of pharmacologic stress-induced ischemia noted. No definite fixed defects were noted. Patient informed that occasionally significant single vessel disease or balanced ischemia could be missed. However based on the current study results, would recommend aggressive risk factor modification and medical therapy. It may also be worthwhile to consider evaluation or empiric management of other causes of chest pain. Should no other cause be found and if persistent in having chest pain, then cardiac catheterization should be considered. Right now, recommendations are for aggressive risk factor modification and medical management. Medications reviewed and adjusted accordingly: Yes
--- NOTE | 2017-09-01 13:51 | RADIOLOGY REPORT (SQ) ---
EXAM DESCRIPTION: CHEST PA/LAT COMPLETED DATE/TIME: 09/01/2017 1:19 pm REASON FOR STUDY: follow up plural effusion COMPARISON: 08/29/2017 EXAM PARAMETERS: NUMBER OF VIEWS: two views TECHNIQUE: Digital Frontal and Lateral radiographic views of the chest acquired. RADIATION DOSE: NA LIMITATIONS: none FINDINGS: LUNGS AND PLEURA: Small right pleural effusion larger than on the prior study. No left ef fusion. Lungs appear free of active infiltrates. MEDIASTINUM AND HILAR STRUCTURES: No masses or contour abnormalities. HEART AND VASCULAR STRUCTURES: Heart normal size. No evidence for failure. BONES: No acute findings. HARDWARE: None in the chest. OTHER: No other significant finding. IMPRESSION: Small right pleural effusion slightly larger than on the prior study. TECHNICAL DOCUMENTATION: JOB ID: [id number]- All Rights Reserved
[2017-09-01 17:09] VITALS: BP 153/96
--- NOTE | 2017-09-01 19:23 | XCELERA REPORT ---
[address] [address] Transthoracic Echocardiogram Report Name: JUAN PABLO DIANE Age: 66 yrs Gender: Female : 1950 Patient Status: Inpatient Patient Location: [address] [place], [place] [address]A Study Date: 09/01/2017 10:21 AM Height: 67 in Weight: 195 lb BSA: 2.0 m2 Procedure: A limited two-dimensional transthoracic echocardiogram was performed (2D). The study was technically good with many images being of high quality. Reason For Study: Cardiomyopathy Ordering Physician: JASON CROWELL Performed By: Era Hernandez Interpretation Summary LV EF is 34% by Biplane measurements% MMode/2D Measurements & Calculations RVDd: 3.1 cm LVIDd: 5.4 cm FS: 16.5 % LVLd ap4: 7.7 cm IVSd: 1.0 cm LVIDs: 4.5 cm EDV(Teich): 141.7 mlEDV(MOD-sp4): 76.0 ml LVPWd: 0.98 cmESV(Teich): 93.1 ml LVLs ap4: 6.9 cm EF(Teich): 34.3 % ESV(MOD-sp4): 49.0 ml EF(MOD-sp4): 35.5 % SV(MOD-sp4): 27.0 ml Left Ventricle LV EF is 34% by Biplane measurements%. : JASON CROWELL > Jason Crowell
[2017-09-01] MEDS ORDERED: CARVEDILOL 6.25 MG TABLET PO SCH (22:00)
--- NOTE | 2017-09-07 18:07 | PDOC CONSULTATION ---
Consultation Consult Date: 08/28/17 Attending physician:: ZION ARRIAZA Consult reason:: dyspnea History of Present Illness Admission Date/PCP: 08/27/17 22:36 History of Present Illness: JUAN PABLO DIANE is a 66 year old female with a past medical history of hypertension. Presenting after several weeks of progressive leg edema, orthopnea and exertional shortness of breath. Additionally she has had several days of rhinorrhea, subjective fever and nonproductive cough. In the emergency room she is found to be hypertensive with systolic pressure in the 180s, tachypnea and a CT of the chest with a large right-sided pleural effusion and infiltrate. She denies hmoptysis her PPD was neg dates unkown .No hx of chronic lung dx as a child NO exsposure to passive smoke as a child or adult.She denies signficant occupational exsposure to potential resp toxins no recent travel no anginal like chest pain. Past Medical History Cardiac Medical History: Reports: Hypertension EENT Medical History: Reports: None Neurological Medical History: Reports: None Endocrine Medical History: Reports: None Malignancy Medical History: Reports: None GI Medical History: Reports: None Musculoskeltal Medical History: Reports: None Skin Medical History: Reports: None Psychiatric Medical History: Reports: None Denies: Depression Traumatic Medical History: Reports: None Hematology: Reports: None Infectious Medical History: Reports: None Past Surgical History Past Surgical History: Reports: None Social History Information Source: Patient, Relative Lives with: Family Smoking Status: Never Smoker Passive smoke exposure as: Both Frequency of Alcohol Use: Occasional Hx Recreational Drug Use: No Drugs: None Hx Prescription Drug Abuse: No - Advance Directive Resuscitation Status: Full Code Family History Family History: COPD Parental Family History Reviewed: Yes Children Family History Reviewed: Yes Sibling(s) Family History Reviewed.: Yes Medication/Allergy Home Medications: Aspirin 81 mg PO DAILY #30 tab.chew 09/01/17 Atorvastatin Calcium [Lipitor 40 mg Tablet] 40 mg PO QHS #30 tablet 09/01/17 Carvedilol [Coreg 6.25 mg Tablet] 6.25 mg PO Q12 #60 tablet 09/01/17 Digoxin [Lanoxin 0.125 mg Tablet] 0.125 mg PO DAILY #30 tablet 09/01/17 Levofloxacin [Levaquin] 750 mg PO DAILY #2 tablet 09/01/17 Sacubitril/Valsartan [Entresto 24 mg-26 mg Tablet] 1 each PO BID #60 tablet Torsemide [Demadex 20 mg Tablet] 10 mg PO DAILY #30 tablet 09/01/17 Allergies/Adverse Reactions: No Known Allergies Allergy (Unverified 08/27/17 17:30) Review of Systems Constitutional: PRESENT: chills, fatigue, weakness. ABSENT: fever(s), headache( s), night sweats Eyes: ABSENT: visual disturbances Ears: ABSENT: hearing changes Nose, Mouth, and Throat: ABSENT: mouth pain, sore throat Cardiovascular: PRESENT: dyspnea on exertion, edema Respiratory: ABSENT: hemoptysis Gastrointestinal: ABSENT: abdominal pain, bloating, coffee ground emesis, heartburn, hematemesis, hematochezia, melena, vomiting Genitourinary: PRESENT: nocturia. ABSENT: difficulty urinating, dysuria, hematuria Musculoskeletal: ABSENT: back pain, deformity Integumentary: ABSENT: pruritus, rash Neurological: ABSENT: abnormal speech, confusion, convulsions, focal weakness, lack of coordination, memory loss Psychiatric: PRESENT: anxiety, depression. ABSENT: hallucinations, homidical ideation, suicidal ideation Endocrine: PRESENT: polyuria. ABSENT: cold intolerance, heat intolerance, menstrual abnormalities, polydipsia Hematologic/Lymphatic: ABSENT: easy bleeding Physical Exam Vital Signs: Temp Pulse Resp BP Pulse Ox 98.3 F 95 12 153/96 H 94 09/01/17 17:05 09/01/17 17:05 09/01/17 17:05 09/01/17 17:05 09/01/17 17:05 Intake & Output 09/01/17 09/02/17 09/03/17 06:59 06:59 06:59 Intake Total 1178 236 Balance 1178 236 Weight 89.6 kg General appearance: PRESENT: no acute distress, cooperative, disheveled, well- developed Head exam: PRESENT: atraumatic, normocephalic Eye exam: PRESENT: conjunctiva pale, EOMI. ABSENT: nystagmus, periorbital swelling Mouth exam: PRESENT: dry mucosa, neck supple, tongue midline Neck exam: ABSENT: carotid bruit, JVD, lymphadenopathy, thyromegaly, tracheal deviation, tracheostomy Respiratory exam: PRESENT: crackles, decreased breath sounds - r hmithorax, rhonchi, unlabored, wheezes. ABSENT: rales, retraction, stridor, symmetrical, tachypnea Cardiovascular exam: PRESENT: RRR, +S1, +S2 Pulses: PRESENT: normal radial pulses GI/Abdominal exam: PRESENT: diminished bowel sounds, soft Extremities exam: ABSENT: calf tenderness, clubbing, joint swelling Musculoskeletal exam: ABSENT: deformity, dislocation Neurological exam: PRESENT: alert, awake Psychiatric exam: PRESENT: normal mood Skin exam: PRESENT: dry, warm Results Laboratory Results: 09/01/17 05:25 09/01/17 05:25 08/29/17 11:50 Thoracic Fluid Gram Stain - Final 08/29/17 11:50 Thoracic Fluid Body Fluid Culture - Final NO AEROBIC OR ANAEROBIC ORGANISMS RECOVERED 08/27/17 08/27/17 08/28/17 22:45 22:45 04:30 Creatine Kinase 46 53 CK-MB (CK-2) 1.29 Troponin I 0.039 NT-Pro-B Natriuret Pep 08/28/17 08/28/17 08/28/17 04:30 10:15 10:15 Creatine Kinase 64 CK-MB (CK-2) 1.37 1.63 Troponin I 0.049 0.047 NT-Pro-B Natriuret Pep 09/01/17 05:25 Creatine Kinase CK-MB (CK-2) Troponin I NT-Pro-B Natriuret Pep 2210 H Impressions: Abdomen/Pelvis CT 08/28/17 00:00 IMPRESSION: 1. Moderate right lower lobar pneumonia. Moderate-large right pleural effusion. 2. No acute intra-abdominal/pelvic findings. Chest CT 08/28/17 00:00 IMPRESSION: 1. Moderate right lower lobar pneumonia. Moderate-large right pleural effusion. 2. No acute intra-abdominal/pelvic findings. Thoracentesis Ultrasound 08/29/17 09:34 IMPRESSION: SUCCESSFUL THORACENTESIS USING ULTRASOUND GUIDANCE. Chest X-Ray 09/01/17 00:00 IMPRESSION: Small right pleural effusion slightly larger than on the prior study. Assessment & Plan - Diagnosis (1) Cardiomyopathy Qualifiers: Cardiomyopathy type: unspecified Qualified Code(s): I42.9 - Cardiomyopathy , unspecified Is this a current diagnosis for this admission?: Yes Plan: per cardiology (2) Congestive heart failure (CHF) Qualifiers: Heart failure type: combined systolic and diastolic Heart failure chronicity: acute Qualified Code(s): I50.41 - Acute combined systolic ( congestive) and diastolic (congestive) heart failure Is this a current diagnosis for this admission?: Yes Plan: diuresis gentle (3) Dyspnea on exertion Is this a current diagnosis for this admission?: Yes Plan: effusion massive (4) Pleural effusion Is this a current diagnosis for this admission?: Yes Plan: thoracentesis cristhian
--- NOTE | 2017-09-07 18:15 | PDOC PROGRESS REPORT ---
Subjective Progress Note for:: 09/01/17 Subjective:: greatly improved Reason For Visit: UTI CHF LARGE R PLEURAL EFFUSION Physical Exam Vital Signs: Temp Pulse Resp BP Pulse Ox 98.3 F 95 12 153/96 H 94 09/01/17 17:05 09/01/17 17:05 09/01/17 17:05 09/01/17 17:05 09/01/17 17:05 Intake & Output 09/01/17 09/02/17 09/03/17 06:59 06:59 06:59 Intake Total 1178 236 Balance 1178 236 Weight 89.6 kg General appearance: PRESENT: no acute distress, cooperative, disheveled, well- developed Head exam: PRESENT: atraumatic, normocephalic Eye exam: PRESENT: conjunctiva pale, EOMI. ABSENT: nystagmus, periorbital swelling, scleral icterus Mouth exam: PRESENT: dry mucosa, neck supple, tongue midline Neck exam: ABSENT: carotid bruit, JVD, lymphadenopathy, thyromegaly, tracheal deviation, tracheostomy Respiratory exam: PRESENT: decreased breath sounds, prolonged expiratory phas, rales, rhonchi, symmetrical, unlabored. ABSENT: retraction, stridor, tachypnea Cardiovascular exam: PRESENT: RRR, +S1, +S2 Pulses: PRESENT: normal radial pulses GI/Abdominal exam: PRESENT: diminished bowel sounds, soft Extremities exam: ABSENT: calf tenderness, clubbing Musculoskeletal exam: PRESENT: ambulatory. ABSENT: deformity, dislocation Neurological exam: PRESENT: alert, awake Psychiatric exam: PRESENT: normal mood Skin exam: PRESENT: dry, warm Results Laboratory Results: 09/01/17 05:25 09/01/17 05:25 08/29/17 11:50 Thoracic Fluid Gram Stain - Final 08/29/17 11:50 Thoracic Fluid Body Fluid Culture - Final NO AEROBIC OR ANAEROBIC ORGANISMS RECOVERED 08/27/17 08/27/17 08/28/17 22:45 22:45 04:30 Creatine Kinase 46 53 CK-MB (CK-2) 1.29 Troponin I 0.039 NT-Pro-B Natriuret Pep 08/28/17 08/28/17 08/28/17 04:30 10:15 10:15 Creatine Kinase 64 CK-MB (CK-2) 1.37 1.63 Troponin I 0.049 0.047 NT-Pro-B Natriuret Pep 09/01/17 05:25 Creatine Kinase CK-MB (CK-2) Troponin I NT-Pro-B Natriuret Pep 2210 H Impressions: Abdomen/Pelvis CT 08/28/17 00:00 IMPRESSION: 1. Moderate right lower lobar pneumonia. Moderate-large right pleural effusion. 2. No acute intra-abdominal/pelvic findings. Chest CT 08/28/17 00:00 IMPRESSION: 1. Moderate right lower lobar pneumonia. Moderate-large right pleural effusion. 2. No acute intra-abdominal/pelvic findings. Thoracentesis Ultrasound 08/29/17 09:34 IMPRESSION: SUCCESSFUL THORACENTESIS USING ULTRASOUND GUIDANCE. Chest X-Ray 09/01/17 00:00 IMPRESSION: Small right pleural effusion slightly larger than on the prior study. Assessment & Plan - Diagnosis (1) Cardiomyopathy Qualifiers: Cardiomyopathy type: unspecified Qualified Code(s): I42.9 - Cardiomyopathy , unspecified Is this a current diagnosis for this admission?: Yes Plan: per cardiology (2) Congestive heart failure (CHF) Qualifiers: Heart failure type: combined systolic and diastolic Heart failure chronicity: acute Qualified Code(s): I50.41 - Acute combined systolic ( congestive) and diastolic (congestive) heart failure Is this a current diagnosis for this admission?: Yes Plan: diuresis gentle (3) Pleural effusion Is this a current diagnosis for this admission?: Yes Plan: Labs- All tests 24 hr 08/28/17 08/28/17 08/29/17 04:30 10:15 11:50 Glucose 128 H Lactate Dehydrogenase 512 Total Protein 7.0 Fluid Type PLEURAL Fluid Source Fluid Color YELLOW Fluid Appearance HAZY Fluid Viscosity LIQUID Fluid WBC 1450 Fluid RBC 642 Fluid Seg Neutrophils 34 Fluid Lymphocytes 61 Fluid Monocytes 5 Fluid Glucose Fluid Total Protein Fluid LDH 08/29/17 11:50 Glucose Lactate Dehydrogenase Total Protein Fluid Type Fluid Source Fluid Color Fluid Appearance Fluid Viscosity Fluid WBC Fluid RBC Fluid Seg Neutrophils Fluid Lymphocytes Fluid Monocytes Fluid Glucose 139 Fluid Total Protein 3.9 Fluid LDH 228
--- NOTE | 2017-10-12 22:37 | PDOC DISCHARGE SUMMARY ---
General - Admit/Disc Date/PCP Admission Date/Primary Care Provider: 08/27/17 22:36 Discharge Date: 09/01/17 - Discharge Diagnosis (1) Pneumonia Is this a current diagnosis for this admission?: Yes (2) Congestive heart failure (CHF) Is this a current diagnosis for this admission?: Yes (3) Dyspnea on exertion Is this a current diagnosis for this admission?: Yes (4) Pleural effusion Is this a current diagnosis for this admission?: Yes (5) Urinary tract infection Is this a current diagnosis for this admission?: Yes - Additional Information Resuscitation Status: Full Code Discharge Diet: Cardiac Discharge Activity: Activity As Tolerated, Balance Activity w/Rest, Weigh Daily Prescriptions: Aspirin 81 mg PO DAILY #30 tab.chew Atorvastatin Calcium [Lipitor 40 mg Tablet] 40 mg PO QHS #30 tablet Carvedilol [Coreg 6.25 mg Tablet] 6.25 mg PO Q12 #60 tablet Digoxin [Lanoxin 0.125 mg Tablet] 0.125 mg PO DAILY #30 tablet Levofloxacin [Levaquin] 750 mg PO DAILY #2 tablet Sacubitril/Valsartan [Entresto 24 mg-26 mg Tablet] 1 each PO BID #60 tablet Torsemide [Demadex 20 mg Tablet] 10 mg PO DAILY #30 tablet Home Medications: Aspirin 81 mg PO DAILY #30 tab.chew 09/01/17 Atorvastatin Calcium [Lipitor 40 mg Tablet] 40 mg PO QHS #30 tablet 09/01/17 Carvedilol [Coreg 6.25 mg Tablet] 6.25 mg PO Q12 #60 tablet 09/01/17 Digoxin [Lanoxin 0.125 mg Tablet] 0.125 mg PO DAILY #30 tablet 09/01/17 Levofloxacin [Levaquin] 750 mg PO DAILY #2 tablet 09/01/17 Sacubitril/Valsartan [Entresto 24 mg-26 mg Tablet] 1 each PO BID #60 tablet Torsemide [Demadex 20 mg Tablet] 10 mg PO DAILY #30 tablet 09/01/17 History of Present Illness History of Present Illness: Patient admitted per HPI below and admission: "JUAN PABLO DIANE is a 66 year old female with a past medical history of hypertension. Presenting after several weeks of progressive leg edema, orthopnea and exertional shortness of breath. Additionally she has had several days of rhinorrhea, subjective fever and nonproductive cough. In the emergency room she is found to be hypertensive with systolic pressure in the 180s, tachypnea and a CT of the chest with a large right-sided pleural effusion and infiltrate. She started on empiric antibiotics and referred to the hospitalist for admission. Patient denies previous pneumonia, infectious contacts or recent antibiotic use." Hospital Course Hospital Course: Patient was admitted to the hospitalist vangie and managed as follows: (1) Pneumonia Qualifiers: a Pneumonia type: due to unspecified organism Laterality: right Lung location: lower lobe of lung Qualified Code(s): J18.1 - Lobar pneumonia, unspecified organism Is this a current diagnosis for this admission?: Yes Plan: Treated with Levaquin antibiotics and doing much better. (2) Acute in ronic Combine Systolic and Diastolic Congestive heart failure ( CHF) Qualifiersne Heart failure type: combined systolic and diastolic Heart failure chronicity: acute Qualified Code(s): I50.41 - Acute combined systolic ( congestive) and diastolic (congestive) heart failure Is this a current diagnosis for this admission?: Yes Plan: This is now established to be acute on chronic combined systolic and diastolic CHF. 2D echo with estimated EF 30%, grade 2 left ventricular didysfunction, elevated RVSP 57. [employer] Dr. Mullen followed patient and ntresto added to meds. Patient had stress cardiolite done that was negative for ischemia. Lasix has been changed to torsemide by cardiology. Coreg started. (3) Dyspnea on exertion Is this a current diagnosis for this admission?: Yes Plan: Multifactorial, improved. (4) Pleural effusion Is this a current diagnosis for this admission?: Yes Plan: Treated with diuresis. Seen by Dr. Farr of pulmonology and patient is also status post thoracentesis 08/29/17. 5) Urinary tract infection Qualifiers: Urinary tract infection type: site unspecified Hematuria presence: without hematuria Qualified Code(s): N39.0 - Urinary tract infection, site not specified Is this a current diagnosis for this admission?: Yes Plan: UA + E. coli sensitive to Levaquin. Patient remains afebrile and hemodynamically stable. Physical Exam Vital Signs: Temp Pulse Resp BP Pulse Ox 98.3 F 95 12 153/96 H 94 09/01/17 17:05 09/01/17 17:05 09/01/17 17:05 09/01/17 17:05 09/01/17 17:05 GEN: NAD, well-deloped, well-nourished CV: RRR, NL S1S2 LUNGS: Few basilar crackles ABDOMEN Soft, NT, +BS EXTERMITIES: 1-2+ lower extremity edema NEURO: Alert, oriented 3, no focal weakness Results Laboratory Results: 09/01/17 05:25 09/01/17 05:25 08/27/17 08/27/17 08/28/17 22:45 22:45 04:30 Creatine Kinase 46 53 CK-MB (CK-2) 1.29 Troponin I 0.039 NT-Pro-B Natriuret Pep 08/28/17 08/28/17 08/28/17 04:30 10:15 10:15 Creatine Kinase 64 CK-MB (CK-2) 1.37 1.63 Troponin I 0.049 0.047 NT-Pro-B Natriuret Pep 09/01/17 05:25 Creatine Kinase CK-MB (CK-2) Troponin I NT-Pro-B Natriuret Pep 2210 H Impressions: Abdomen/Pelvis CT 08/28/17 00:00 IMPRESSION: 1. Moderate right lower lobar pneumonia. Moderate-large right pleural effusion. 2. No acute intra-abdominal/pelvic findings. Chest CT 08/28/17 00:00 IMPRESSION: 1. Moderate right lower lobar pneumonia. Moderate-large right pleural effusion. 2. No acute intra-abdominal/pelvic findings. Thoracentesis Ultrasound 08/29/17 09:34 IMPRESSION: SUCCESSFUL THORACENTESIS USING ULTRASOUND GUIDANCE. Chest X-Ray 09/01/17 00:00 IMPRESSION: Small right pleural effusion slightly larger than on the prior study. Qualifiers - * PATEINT BEING DISCHARGED WITH ANY OF THE FOLLOWING DIAGNOSIS?: No Plan Discharge Plan: Doing much better. She will f/u with her pcp within 1 week and with cardiology within 1 week. External defibrillator recommended by cardiolgy due to depressed ef 30 % but patient is declining at this time. States she can no longer wait in the hospital for the equipment and requesting to go home. She will f/u with Dr. Mullen of cardiology in clinic. Risks and benefits explained and patient verbalized understanding. at bedside.
== END 2017-09-01 18:18 | disposition home or self-care (01) | DRG 193 ==
LOC: ER 17:25 → EH 22:36 → 3W 08-28 14:04
PROVIDERS: ADMIT Internal Medicine; ATTEND Internal Medicine
PROC: 0W993ZX Drainage of Right Pleural Cavity, Percutaneous Approach, Diagnostic (ICD-10-PCS; principal; 2017-08-29)
DX: J18.9 Pneumonia, unspecified organism (principal); I50.43 Acute on chronic combined systolic (congestive) and diastolic (congestive) heart failure; N39.0 Urinary tract infection, site not specified; J90 Pleural effusion, not elsewhere classified; I42.9 Cardiomyopathy, unspecified; I11.0 Hypertensive heart disease with heart failure; B96.20 Unspecified Escherichia coli [E. coli] as the cause of diseases classified elsewhere; I25.10 Atherosclerotic heart disease of native coronary artery without angina pectoris
CPT/HCPCS: 32555; 36415; 71045; 71046; 71250; 74176; 78452; 80048; 80053; 81001; 82550; 82553; 82803; 82945; 82947; 82962; 83605; 83615; 83880; 84155; 84157; 84443; 84484; 85025; 85027; 85610; 85730; 87040; 87070; 87075; 87086; 87088; 87186; 87205; 88305; 88341; 88342; 89050; 93005; 93010; 93017; 93306; 93321; 94640; 99285; A9500; J0280; J0360; J0696; J1644; J1940; J1956; J2060; J2785; J3490; J7620; Q9969